=== PATIENT | female | born 1945 | race Caucasian/White ===

== ENCOUNTER → 2018-02-28 07:25 | Outpatient (CLI) | payer MEDICARE, SELFPAY ==
--- NOTE | 2018-02-28 07:27 | BI_ITS ---
MAMMOGRAPHY - BILATERAL DIAGNOSTIC REASON FOR EXAM: Female, 72 years old. Right lateral lump x2 months. PERTINENT HISTORY: Right breast lump. Patient scheduled for surgical excision today. TECHNIQUE: Digital examination. Mediolateral oblique (MLO) and craniocaudad (CC) views of both breasts were obtained. CAD: CAD was performed on this study. This examination is augmented with a right exaggerated lateral view. COMPARISON: October 19, 2015. FINDINGS: Breast Composition: There are scattered areas of fibroglandular density. There are no dominant masses or suspicious calcifications. No other significant abnormalities are identified. BI/DIAG MAMM W/CAD, BILAT IMPRESSION: Stable bilateral diagnostic mammogram. Sonography of the palpable finding will be performed today. ASSESSMENT CATEGORY: BIRADS Category 0: Incomplete. Need additional imaging evaluation. A letter regarding these results will be sent to the patient by the facility within 30 days. FOLLOW UP RECOMMENDATION: Sonography of the palpable right breast finding today. Approximately 10% of breast cancers are not detected by mammography. A normal mammogram should not delay biopsy of a clinically suspicious abnormality. Electronically Signed: Montez Ramirez MD at 8:52 EDT , Service support ,
--- NOTE | 2018-02-28 08:52 | US_ITS ---
STUDY: ULTRASOUND BREAST - RIGHT REASON FOR EXAM: Female, 72 years old. Right breast lump. TECHNIQUE: Axial and longitudinal images of the RIGHT breast were performed with a high resolution ultrasound transducer. COMPARISON: None. FINDINGS: RIGHT Breast: The area of palpable abnormality was sonographically evaluated utilizing various imaging planes. Within the right lower outer breast there is a 3.3 x 2.9 x 0.8 cm, ovoid, hypoechoic focus. There is no posterior enhancement. There is no posterior shadowing. This lesion is at the approximate 7:30 position identified 15 cm from the nipple. The margins are indistinct but smooth. There is no change to the abnormality with compression. There is peripheral vascularity without central vascularity. This finding is wider than it is tall. US/Breast Limited Unilateral IMPRESSION: 3.3 cm maximum dimension nodule with indistinct but smooth margins at the 7:30 position right breast 15 cm from the nipple. No posterior enhancement. No posterior shadowing. This finding may represent a phyllodes tumor. ASSESSMENT CATEGORY: Combined mammographic and sonographic assessment from today-BIRADS Category 4A: Low suspicion for malignancy. A letter regarding these results will be sent to the patient by the facility within 30 days. Recommendation: Ultrasound-guided core biopsy. Electronically Signed: Montez Ramirez MD at 10:47 EDT , Service support ,
== END ==
PROVIDERS: Family Provider Nurse Practitioner; PCP Nurse Practitioner; Visit Provider Nurse Practitioner
DX: N63.13 Unspecified lump in the right breast, lower outer quadrant (principal)
CPT/HCPCS: 76642; 77062; 77066; G0279

== ENCOUNTER → 2018-03-03 08:40 | Outpatient (CLI) | payer MEDICARE, SELFPAY ==
--- NOTE | 2018-03-03 08:40 | MASS_PTH ---
PATIENT: FLAQUITO MEIER LOC: [facility] #:[id number] AGE/SX: 80/F ROOM: RE03/03/[address]: Dr. Polo Cobb MD : 1945 BED: DIS: SPEC #: [id number] RECD: 03/03/18 09:17 STATUS: SHEILA NAN #: [id number] MONIKA: 03/03/18 08:[address]: Polo Cobb DEPT: SURGICAL PATHOLOGY RECD BY: Juan A Bonner ENTERED: 03/05/18 10:29 SP TYPE: Mass OTHR DR: Melissa Vicente, SUPERVISOR CORE DRILLING-C Tissues: Chest wall, NOS Procedures: Surgery Specimen Level III HEADER OPERATION: Excision, subcutaneous mass, right lateral chest wall PRE-OP DIAGNOSIS: Lesion, subcutaneous tissue, L98.9 TISSUE SUBMITTED: Subcutaneous mass, right lateral chest wall MICROSCOPIC DIAGNOSIS Subcutaneous mass, right lateral chest wall, excision: Mature adipose tissue, consistent with lipoma. SJ:jackelyn 03/06/18 MICROSCOPIC DESCRIPTION Slides are reviewed. GROSS DESCRIPTION Received in fixative is one container labeled with the patient's name and designated subcutaneous mass right lateral chest wall. The specimen consists of a piece of yellow adipose tissue measuring 3.5 x 2.5 x 2 cm. The external surface is inked. Sections reveal yellow adipose cut surfaces without areas of hemorrhage, necrosis or cystic degeneration. Flatwork Folder sections are submitted in two cassettes. / RENAE:jackelyn 03/05/18 TC:1 CPT: 14739
== END ==
PROVIDERS: Family Provider Nurse Practitioner; PCP Nurse Practitioner; Visit Provider Surgery
DX: L98.9 Disorder of the skin and subcutaneous tissue, unspecified (principal)
CPT/HCPCS: 88304; 88305

== ENCOUNTER → 2018-03-12 09:17 | Outpatient (CLI) | payer MEDICARE, SELFPAY ==
--- NOTE | 2018-03-12 09:23 | US_ITS ---
STUDY: ABDOMINAL ULTRASOUND - RIGHT UPPER QUADRANT REASON FOR VISIT: Female, 72 years old. Elevated LFTs. TECHNIQUE: Ultrasound evaluation of the right upper quadrant was performed with real-time and static cruz-scale imaging. TECHNICAL QUALITY: Adequate. COMPARISON: CT abdomen and pelvis with contrast 10/12/2015. FINDINGS: Liver: The liver measures 12.9 cm. There is normal echogenicity of the liver. The bile ducts are within normal limits. There is hepatic color flow. The direction of portal flow is hepatopetal. There is no demonstrated mass lesion. Gallbladder: Normal distended gallbladder. The gallbladder wall measures 2 mm. There is a negative sonographic Deng's sign. There is no pericholecystic fluid. There is a nonmobile hyperechoic focus in the gallbladder wall. This is gallbladder polyp and it measures 0.3 x 0.2 cm. Common Bile Duct (C.B.D.): The common bile duct measures 3 mm. Pancreas: Normal size of the head, body and tail of the pancreas. There is normal echogenicity of the pancreas. There is no demonstrated pancreatic mass or cyst. The pancreatic duct is not dilated. Right Kidney: Normal size of the right kidney. The right kidney measures 9.9 x 5.0 x 4.3 cm. Normal renal cortex. The right cortex measures 1.1 cm. There is no demonstrated renal mass or cyst. There is no right hydronephrosis. There is a prominent right extrarenal pelvis which correlates with the previous CT of the abdomen. US/Liver IMPRESSION: 1. Small gallbladder polyp. 2. No suspicious acute abnormality in the abdomen. Electronically Signed: Ad Mack MD at 11:49 EDT , Service support ,
== END ==
PROVIDERS: Family Provider Internal Medicine; PCP Internal Medicine; Visit Provider Internal Medicine
DX: R94.5 Abnormal results of liver function studies (principal)
CPT/HCPCS: 76705

== ENCOUNTER → 2018-05-29 12:42 | Outpatient (CLI) | payer MEDICARE, SELFPAY ==
--- NOTE | 2018-05-29 12:51 | CT_ITS ---
STUDY: CT BRAIN WITHOUT CONTRAST REASON FOR EXAM: Female, 73 years old. Intermittent right facial numbness and tingling x2.5 years. RADIATION DOSAGE (If Supplied By Facility): CTDIvol = ( 44.99 ) mGy, DLP = ( 762.36 ) mGycm TECHNIQUE: Transaxial CT imaging of the brain was performed without administration of intravenous contrast material. Individualized dose optimization techniques were used for this CT. COMPARISON: MRI brain October 16, 2015. FINDINGS: Normal soft tissue structures. Normal calvarium. Mild atherosclerotic calcifications of the cavernous segments of the internal carotid arteries. Normal size ventricles and extra-axial spaces for the patient's age. Normal white matter tracts of the cerebral hemispheres. There are small punctate calcifications of the basal ganglia which are seen in the aging brain as a normal variant. Normal brainstem. Normal cerebellum. There is no intracranial hemorrhage. There are no findings of an acute ischemic infarction. Normal visualized paranasal sinuses. CT/Brain/Head without Contrast IMPRESSION: No acute intracranial pathology. Electronically Signed: Ronny Cabezas MD at 19:44 EDT , Service support ,
== END ==
PROVIDERS: Family Provider Internal Medicine; PCP Internal Medicine; Visit Provider Nurse Practitioner
DX: R20.2 Paresthesia of skin (principal); R20.0 Anesthesia of skin
CPT/HCPCS: 70450

== ENCOUNTER → 2018-05-31 09:45 | Outpatient (CLI) | payer MEDICARE, SELFPAY ==
--- NOTE | 2018-05-31 09:50 | CDU_ITS ---
Reason For Study: RT sided facial numbness/tingling Rt. Velocities/BP Lt. Velocities/BP Prox CCA 107.0/17.0 cm/sec. Prox CCA 76.2/21.7 cm/sec. Mid CCA 91.5/27.0 cm/sec. Mid CCA 82.7/24.0 cm/sec. Dist CCA 73.9/19.9 cm/sec. Dist CCA 65.1/21.1 cm/sec. Prox ICA 74.5/27.6 cm/sec. Prox ICA 68.0/27.0 cm/sec. Mid ICA 92.0/40.5 cm/sec. Mid ICA 77.4/30.5 cm/sec. Dist ICA 78.6/30.0 cm/sec. Dist ICA 85.0/36.9 cm/sec. Rt. ICA/CCA = 1.0. Lt. ICA/CCA = 1.0. Prox ECA 105.0/16.4 cm/sec. Prox ECA 62.7/10.6 cm/sec. Rt. Vert. 48.1/17.6 cm/sec. Lt. Vert. 78.6/23.5 cm/sec. Right Extracranial There is no significant atherosclerotic plaque noted in the right common carotid artery. There is no significant atherosclerotic plaque noted in the right internal carotid artery. There is no significant atherosclerotic plaque noted in the right external carotid artery. Antegrade flow is noted in the right vertebral artery. Left Extracranial There is intimal thickening but no significant atherosclerotic plaque noted in the left common carotid artery. There is no significant atherosclerotic plaque noted in the left internal carotid artery. There is no significant atherosclerotic plaque noted in the left external carotid artery. Antegrade flow is noted in the left vertebral artery. Procedure Carotid Duplex [id number]. Exam performed in department. Interpretation Summary No significant atherosclerotic plaque or stenosis noted in the internal carotid arteries bilaterally. Flow within the vertebral arteries is antegrade bilaterally. Ordering Physician: Melissa Vicente Referring Physician: Melissa Vicente Performed By: Yolanda Marcial RVT
== END ==
PROVIDERS: Family Provider Internal Medicine; PCP Internal Medicine; Visit Provider Nurse Practitioner
DX: R20.0 Anesthesia of skin (principal); R20.2 Paresthesia of skin
CPT/HCPCS: 93880

== ENCOUNTER → 2018-06-04 14:03 | Outpatient (CLI) | payer MEDICARE, SELFPAY ==
[2018-06-04 15:49] LABS: Ferritin 429 ng/mL (8-252)
[2018-06-06 14:07] LABS: ANTINUCLEAR ANTIBODIES DIRECT Negative (Negative)
[2018-06-07 16:50] LABS: Anti-Smooth Muscle ABS 9 Units (0-19); HEPATITIS B SURFACE AG Negative (Negative); Hep C Antibodies 0.1 s/co ratio (0.0-0.9)
[2018-06-07 17:07] LABS: Alpha Antitrypsin Serum 93 mg/dL (90-200); Anti-Mitochondrial AB <20.0 Units (0.0-20.0)
== END ==
PROVIDERS: Family Provider Internal Medicine; PCP Internal Medicine; Visit Provider Internal Medicine Gastroenterology
DX: K75.9 Inflammatory liver disease, unspecified (principal)
CPT/HCPCS: 36415; 82103; 82728; 83516; 86038; 86803; 87340

== ENCOUNTER → 2018-07-05 08:32 | Outpatient (CLI) | payer MEDICARE, SELFPAY | PROVIDERS: Family Provider Internal Medicine; PCP Internal Medicine; Visit Provider Internal Medicine | DX: M81.0 Age-related osteoporosis without current pathological fracture (principal) | CPT/HCPCS: 77080 ==

== ENCOUNTER → 2018-08-16 15:06 | Outpatient (CLI) | payer MEDICARE, SELFPAY ==
[2018-08-16 17:32] LABS: Absolute Lymphocyte Count 0.63 X10^3/ul (0.83-4.51); Absolute Neutrophil Count 1.4 X10^3/uL (2.0-7.7); Basophil# 0.08 X10^3/uL; Basophil% 3.6 % (0-1); Eosinophil# 0.01 X10^3/uL; Eosinophils% 0.4 % (0-5); Hematocrit 40.9 % (37-47); Hemoglobin 13.1 g/dl (12.0-15.0); Lymphocyte # 0.63 X10^3/ul (4.0); Mean Corpuscular Hgb 27.8 pg (27.0-32.0); Mean Corpuscular Volume 86.7 fL (81-99); Monocyte# 0.15 X10^3/uL; Monocyte% 6.7 % (0-10); Neutrophil # 1.38 X10^3/uL (2.7-7.7); Neutrophil % 61.3 % (47-70); Platelet Count 139 K/mm3 (150-450); RBC Distribution Width CV 15.3 % (11.6-14.6); RBC Distribution Width SD 48.8 fl (35.1-43.9); Red Blood Count 4.72 M/mm3 (4.2-5.4); White Blood Count 2.3 K/mm3 (4.4-11.0)
[2018-08-16 17:51] LABS: POSITIVE COUNT NO; POSITIVE DIFFERENTIAL NO; POSITIVE MORPHOLOGY NO
[2018-08-16 17:53] LABS: Erythrocyte Sedimentation Rate < 1 mm/hr (0-30)
[2018-08-16 17:55] LABS: Hemoglobin A1c 5.1 % (4.2-6.3)
[2018-08-16 18:12] LABS: ALB/GLOB Ratio 1.3 RATIO (0.9-2.4); AST(SGOT) 66 U/L (15-37); Alanine Aminotransfer ALT/SGPT 111 U/L (13-56); Albumin, Serum 3.9 g/dL (3.2-5.0); Alkaline Phosphatase 157 U/L (45-117); Anion Gap 7 (5-15); BUN 21 mg/dL (7-18); BUN/Creat Ratio 33.2 RATIO (10-20); Calcium,Total 8.7 mg/dL (8.5-10.1); Chloride 108 mmol/L (98-107); Creatinine, Serum 0.63 mg/dL (0.55-1.02); EST Glomerular Filtration Rate 98 mL/min (>60); Est Glom Filt Rate - Afr Amer 118 mL/min (>60); Globulin 2.9 g/dL (2.2-4.2); Glucose 84 mg/dL (74-106); Potassium 3.9 mmol/L (3.5-5.1); Protein, Total 6.8 g/dL (6.4-8.2); Sodium Level 143 mmol/L (136-145); Thyroid Stim Hormone (TSH) 1.53 uIU/mL (0.358-3.74)
[2018-08-16 18:39] LABS: HIV - WCH Non-Reactive (Nonreactive); Vitamin B12 777 pg/mL (211-911)
[2018-08-21 09:03] LABS: ANTINUCLEAR ANTIBODIES DIRECT Negative (Negative)
[2018-08-22 22:09] LABS: PROEL- A/G Ratio 1.7 (0.7-1.7); PROEL- Albumin 3.9 g/dL (2.9-4.4); PROEL- Alpha-1 Globulin 0.1 g/dL (0.0-0.4); PROEL- Alpha-2 Globulin 0.5 g/dL (0.4-1.0); PROEL- Gamma Globulin 0.7 g/dL (0.4-1.8); PROEL- Globulin, Total 2.3 g/dL (2.2-3.9); PROEL- TOTAL PROTEIN 6.2 g/dL (6.0-8.5)
[2018-08-23 13:27] LABS: Arsenic 7245 8 ug/L (2-23); Hep C Antibodies <0.1 s/co ratio (0.0-0.9)
== END ==
PROVIDERS: Family Provider Internal Medicine; PCP Internal Medicine; Referring Provider Nurse Practitioner Gerontology; Visit Provider Nurse Practitioner Gerontology
DX: R20.0 Anesthesia of skin (principal); R20.2 Paresthesia of skin; E16.2 Hypoglycemia, unspecified
CPT/HCPCS: 36415; 80053; 82175; 82607; 83036; 83655; 83825; 84165; 84443; 85025; 85652; 86038; 86703; 86803

== ENCOUNTER → 2018-08-29 13:52 | Outpatient (CLI) | payer MEDICARE, SELFPAY | PROVIDERS: Family Provider Internal Medicine; PCP Internal Medicine; Referring Provider Internal Medicine; Visit Provider Internal Medicine | DX: I49.3 Ventricular premature depolarization (principal) | CPT/HCPCS: 93225; 93226 ==

== ENCOUNTER → 2020-02-10 11:34 | Outpatient (CLI) | payer MEDICARE, SELFPAY ==
--- NOTE | 2020-02-10 11:40 | RAD_ITS ---
STUDY: X-RAY CHEST REASON FOR EXAM: Female, 74 years old. CHEST PAIN TECHNIQUE: PA and lateral views of the chest. COMPARISON: Comparison is made with prior examination dated July 26, 2017. FINDINGS: Hyperinflation. The lungs are clear. There is no demonstrated pleural abnormality. Normal size heart. Normal mediastinum and sheldon. Normal visualized pulmonary arteries. Normal visualized aortic arch and descending thoracic aorta. There are mild degenerative changes of the visualized thoracic spine. Normal visualized ribs, clavicles, and shoulders. There is no demonstrated abnormality of the visualized soft tissue structures of the upper abdomen. RAD/Chest PA and Lateral IMPRESSION: Hyperinflation. The lungs are clear. Electronically Signed: Hu Mims, at 12:43 EDT , Service support ,
== END ==
PROVIDERS: PCP Internal Medicine; Referring Provider Nurse Practitioner; Visit Provider Nurse Practitioner
DX: R07.9 Chest pain, unspecified (principal)
CPT/HCPCS: 71046

== ENCOUNTER → 2020-02-10 12:47 | Outpatient (CLI) | payer MEDICARE, SELFPAY | PROVIDERS: PCP Internal Medicine; Referring Provider Nurse Practitioner; Visit Provider Nurse Practitioner | DX: R00.0 Tachycardia, unspecified (principal); R07.9 Chest pain, unspecified | CPT/HCPCS: 71046; 93225; 93226 ==

== ENCOUNTER → 2020-03-06 12:55 | Outpatient (CLI) | payer MEDICARE, SELFPAY ==
--- NOTE | 2020-03-06 12:57 | ECHOD_ITS ---
Version 2 Reason For Study: TACHYCARDIA Procedure This was a 2D Doppler, Color Flow transthoracic echocardiogram. Exam performed in department. Left Ventricle Normal LV size. Left ventricular systolic function is normal. The estimated ejection fraction is 55 %. The global longitudinal strain = -23 % (normal). Diastolic function is indeterminate. No regional wall motion abnormalities noted. Right Ventricle Normal RV size. Normal systolic function. Atria Normal left atrium. Normal right atrium. No doppler evidence for ASD. Mitral Valve There is no mitral annular calcification. Mild diffuse mitral valve thickening. Mild to moderate mitral valve prolapse. Mild-Moderate (1-2+) mitral valve insufficiency. Tricuspid Valve Normal tricuspid valve. Mild to moderate (1-2+) eccentric tricuspid valve insufficiency. Right ventricular systolic pressure estimated to be 29 mmHg. Aortic Valve Trisinus/trileaflet aortic valve. Mild diffuse aortic valve thickening. Mild (1+) aortic valve insufficiency. Pulmonic Valve The pulmonic valve is not well visualized. Trivial pulmonic valve insufficiency. Great Vessels Normal sized aortic root. Pericardium/Pleural No pericardial effusion. MMode/2D Measurements & Calculations LVIDd: 4.0 cm IVSd: 0.86 cm Ao root diam: 3.4 cm LVIDs: 2.9 cm LVPWd: 0.95 cm RVDd: 3.3 cm FS: 28.4 % LAV(MOD-bp): 38.8 ml LA A4 area: 13.8 cm2 LA dimension(2D): 3.3 cm LAV(MOD-bp) Indexed: 23.7 ml/m2 LAV(MOD-sp2): 50.4 ml LAV(MOD-sp4): 29.3 ml RA A4 area: 12.8 cm2 Time Measurements MV dec time: 0.17 sec Doppler Measurements & Calculations MV E max ravi: 62.7 cm/sec Lat Peak E' Ravi: 10.2 cm/sec Med Peak E' Ravi: 5.7 cm/sec MV A max ravi: 89.5 cm/sec E/E' lat: 6.1 E/E' med: 11.0 MV E/A: 0.70 Ao V2 max: 132.8 cm/sec AI max ravi: 417.7 cm/sec LV V1 max: 94.6 cm/sec Ao max P.1 mmHg AI max P.9 mmHg LV V1 max P.6 mmHg AI dec slope: 297.8 cm/sec2 AI P1/2t: 410.8 msec PA V2 max: 79.0 cm/sec TR max ravi: 254.9 cm/sec TR max P.1 mmHg Interpretation Summary Left ventricular systolic function is normal. The estimated ejection fraction is 55 %. The global longitudinal strain = -23 % (normal). Mild to moderate mitral valve prolapse. Mild diffuse mitral valve thickening. Mild-Moderate (1-2+) mitral valve insufficiency. Mild to moderate (1-2+) eccentric tricuspid valve insufficiency. Mild diffuse aortic valve thickening. Mild (1+) aortic valve insufficiency. Trivial pulmonic valve insufficiency. Right ventricular systolic pressure estimated to be 29 mmHg. Diastolic function is indeterminate. Ordering Physician: Melissa Vicente Referring Physician: Melissa Vicente Performed By: Agatha Nunn, LISETH, RVT
== END ==
PROVIDERS: PCP Nurse Practitioner; Referring Provider Nurse Practitioner; Visit Provider Nurse Practitioner
DX: R07.9 Chest pain, unspecified (principal); R00.0 Tachycardia, unspecified
CPT/HCPCS: 93306

== ENCOUNTER → 2020-08-13 12:38 | Outpatient (CLI) | payer MEDICARE, SELFPAY ==
--- NOTE | 2020-08-13 12:43 | BI_ITS ---
MAMMOGRAPHY - BILATERAL SCREENING REASON FOR EXAM: Female, 75 years old. Routine annual screening examination. PERTINENT HISTORY: FAM HX OF MOTHER @ AGE 36 - NO PREV SURG''S - TECHNIQUE: Digital bilateral breast stepan (3D mammographic acquisition) in the CC and MLO projections. 2-D mediolateral oblique (MLO) and craniocaudad (CC) views of both breasts were obtained. CAD: Full Field Digital Mammography with Computer Added Detection was performed. COMPARISON: 06/30/2018 and 10/21/2015 FINDINGS: Breast Composition: There are scattered areas of fibroglandular density. There are no dominant masses or suspicious calcifications. No other significant abnormalities are identified. BI/SCREEN MAMM (CAD) W/STEPAN BILAT IMPRESSION: Stable bilateral screening mammogram. Yearly follow-up mammogram recommended. (A) ASSESSMENT CATEGORY: BIRADS Category 2: Benign. A letter regarding these results will be sent to the patient by the facility within 30 days. Approximately 10% of breast cancers are not detected by mammography. A normal mammogram should not delay biopsy of a clinically suspicious abnormality. [id number] Electronically Signed: Tegan Miramontes, at 16:39 EDT Tel , Service support ,
--- NOTE | 2020-08-13 13:10 | BD_ITS ---
STUDY: DUAL ENERGY X-RAY ABSORPTIOMETRY / DXA REASON FOR EXAM: Female, 75 years old. 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 COMPARISON: Comparison is made with prior study dated 07/05/2018. FINDINGS: Lumbar Spine (L1-L4): g/cm2 (0.876) / T-score (-2.5) / Z-score (-0.8) Findings are suggestive of osteoporosis with a high fracture risk. Left Femur Total: g/cm2 (0.668) / T-score (-2.7) / Z-score (-0.9) Left Femoral Neck: g/cm2 (0.634) / T-score (-2.9) / Z-score (-0.9) Right Femur Total: g/cm2 (0.641) / T-score (-2.9) / Z-score (-1.1) Right Femoral Neck: g/cm2 (0.600) / T-score (-3.2) / Z-score (-1.2) The T-Scores on the most recent prior examination were: Lumbar Spine (L1-L4): There has been worsening of bone density since the previous examination. Left Femur Total: which represents an improvement of 1.2%. Right Femur Total: which represents a worsening of 0.6%. BD/Dexa Bone Density Study IMPRESSION: The patient is considered osteoporotic as outlined below according to World Clay Organization (WHO) criteria with a high fracture risk. There has been improvement of bone density since the previous examination. Reference Information: The T-score is the number of standard deviations above or below the standard which is normal for young adults at their peak bone mineral density. The World Health Organization (WHO) interprets the T-scores as follows: Above -1 Normal bone density Between -1 and -2.5 Osteopenia Equal to / or below -2.5 Osteoporosis As a practical clinical guideline, osteopenia may be graded as follows: Mild -1 through -1.5 Moderate -1.6 through -2.0 Severe -2.1 through -2.4 The Z-score is the number of standard deviations above or below age-matched controls. A Z-score of less than -1.5 would be considered abnormal. References: 1. NIH Osteoporosis and Related Bone Diseases www osteo.org 2. International Society for Clinical Densitometry www iscd.org 3. National Osteoporosis Foundation www nof.org Electronically Signed: Hu Mims, at 13:35 EDT , Service support ,
== END ==
PROVIDERS: PCP Nurse Practitioner; Referring Provider Nurse Practitioner; Visit Provider Nurse Practitioner
DX: Z12.31 Encounter for screening mammogram for malignant neoplasm of breast (principal); Z78.0 Asymptomatic menopausal state
CPT/HCPCS: 77063; 77067; 77080

== ENCOUNTER → 2021-01-29 08:12 | Outpatient (CLI) | payer MEDICARE, SELFPAY ==
--- NOTE | 2021-01-29 08:19 | CT_ITS ---
STUDY: CT ORBITS WITHOUT CONTRAST REASON FOR EXAM: Female, 75 years old. DIPLOPIA RADIATION DOSAGE (If Supplied By Facility): CTDIvol = ( 29.38 ) mGy, DLP = ( 290.35 ) mGycm TECHNIQUE: The patient was scanned in a multi detector CT scanner. Transaxial imaging was performed without the administration of intravenous contrast material. Sagittal and coronal images were reconstructed. Individualized dose optimization techniques were used for this CT. COMPARISON: None. FINDINGS: Normal globes. Normal intraconal spaces. Normal optic nerve sheath complex. 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 Normal lacrimal glands. Normal bilateral medial and inferior orbital dunne. Normal bilateral maxillary bones. Normal bilateral frontozygomatic arches. Normal bilateral zygomatic temporal arches. Normal frontal sinus. Normal ethmoidal sinuses. Normal maxillary sinuses. Normal sphenoid sinuses. Normal soft tissue structures. 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 Electronically Signed: Hu Mims MD at 13:05 EDT , Service support ,
== END ==
PROVIDERS: PCP Nurse Practitioner; Referring Provider Ophthalmology; Visit Provider Ophthalmology
DX: H53.2 Diplopia (principal)
CPT/HCPCS: 70480

== ENCOUNTER → 2021-02-19 12:14 | Outpatient (CLI) | payer MEDICARE, SELFPAY ==
--- NOTE | 2021-02-19 12:27 | US_ITS ---
STUDY: THYROID ULTRASOUND REASON FOR EXAM: Female, [address] TECHNIQUE: Ultrasound evaluation of the thyroid was performed with real-time and static cruz-scale imaging. COMPARISON: None. FINDINGS: RIGHT LOBE: The right lobe of the thyroid gland measures 3.7 cm x 1.1 cm x 1.6 cm. There is a homogeneous echotexture. There are no demonstrated solid, cystic or complex lesions. LEFT LOBE: The left lobe of the thyroid gland measures 4.3 cm x 1.7 cm x 1.3 cm. There is a homogeneous echotexture. There is a 3 mm x 2 mm x 2 mm hypoechoic solid nodule in the midpole of the left lobe. There is perinodular vascularity. ISTHMUS: The isthmus measures 2 mm. The regional lymph nodes are normal. US/Thyroid IMPRESSION: 3 mm x 2 mm x 2 mm hypoechoic solid nodule in the midportion of the left lobe of the thyroid. Electronically Signed: Hu Mims MD at 15:27 EDT , Service support ,
== END ==
PROVIDERS: PCP Nurse Practitioner; Referring Provider Nurse Practitioner; Visit Provider Nurse Practitioner
DX: R90.89 Other abnormal findings on diagnostic imaging of central nervous system (principal)
CPT/HCPCS: 76536

== ENCOUNTER 2021-03-05 05:49 | Emergency (ER) | payer MEDICARE, SELFPAY ==
[2021-03-05 05:50] VITALS: BP 149/83; PULSE 83; RESP 16; TEMP 36.1; O2SAT 97; BMI 23.4
--- NOTE | 2021-03-05 06:01 | ED.VIS.GI ---
HPI HPI - GI History of Present Illness Chief Complaint: Flank Pain Informant: patient and spouse/S.O. Abdominal Pain/Flank Pain Onset: Yesterday Context: Sudden Onset Timing: Continuous and Intermittent Quality: Sharp Location: Left Flank Current Severity: Moderate Maximum Severity: Moderate Worsened by: Nothing Nausea/Vomiting/Emesis GI Symptom: Positive for Nausea Onset: Today Severity: Mild Diarrhea/Melena/Hematochezia GI Symptom: Negative for Diarrhea, Melena and Hematochezia Stool Quality: Negative for Loose and Watery Associated Symptoms Associated Symptoms: Negative for Dysuria, Frequency and Hematuria Narrative Narrative: 75-year-old female history of COPD and a prior left kidney stone. Prior hysterectomy. States that yesterday she had onset of left flank pain actually improved and became worse around 130 this morning. Associated nausea. No diarrhea or fever. No dysuria. No hematuria. She does not think this feels like her prior kidney stone. She denies any abdominal trauma. [facility] Medical History (Updated 03/05/21 @ 07:[address] Bryan Lloyd MD) Kidney stone on left side Home Medications hydrocodone-acetaminophen 1 tab PO Q4H PRN 4 Days #14 tab 03/05/21 [Rx Last Taken Unknown] metoprolol succinate [Toprol XL] 12.5 mg PO DAILY 03/05/21 [History Last Taken Unknown] ondansetron HCl [Zofran] 4 mg PO Q6H PRN #10 tab 03/05/21 [Rx Last Taken Unknown] Allergy/AdvReac Type Severity Reaction Status Date / Time metoclopramide [From Reglan] Allergy Mild Unknown Verified 03/05/21 05:55 Family History Mother Breast cancer Father Cancer Brother Cancer Sister Cancer Surgical History H/O: hysterectomy Hx of colonoscopy Status post right foot surgery Social History Smoking Status: Never smoker alcohol intake: never ROS ROS ED ROS Narrative Other than nausea associated with her left flank pain she has not had any recent illness. She denies dysuria or hematuria. She denies fever. Constitutional Constitutional ED: Denies fever(s) ENT ENT ED: Denies ear pain, rhinorrhea or sore throat Cardiovascular Cardiovascular: Denies chest pain or palpitations Respiratory/Chest Respiratory/Chest: Denies cough or dyspnea Gastrointestinal Gastrointestinal: Reports abdominal pain and nausea; Denies constipation, diarrhea or melena Genitourinary Genitourinary ED: Denies dysuria, hematuria or urinary frequency Musculoskeletal Musculoskeletal: Denies arthralgias or myalgias Integumentary Denies abscess or rash Neurologic Neurologic: Denies weakness Psychiatric Psychiatric: Denies depression Endocrine Endocrinology: Denies polyuria Hematologic/Lymphatic Hematologic/Lymphatic: Denies easy bruising Allergic/Immunologic Allergic/Immunologic ED: Denies urticaria EXAM Physical Exam Narrative Exam Narrative: 75-year-old female complaining of left flank pain. Vital signs are stable and she is afebrile. She is actively nauseated in the room. is at bedside. HEENT exam unremarkable. Lungs are clear to auscultation bilaterally. Heart regular rhythm no murmur. Abdomen soft. She does have left-sided abdominal tenderness primarily in the left lower quadrant. No organomegaly or masses appreciated. No pulsatile mass. No signs of trauma. No distention. Right upper quadrant and right lower quadrant unremarkable. She does have bowel sounds. Moving all 4 extremities. Neurovascularly intact. Calves are nontender without edema. Neurologically she is awake and alert with no focal motor deficits. Const Vital Signs: 03/05/21 05:50 Temperature 97 F L Temperature Source Temporal Pulse Rate 83 Respiratory Rate 16 Blood Pressure 149/83 H Blood Pressure Mean 105 Pulse Ox 97 Oxygen Delivery Method Room Air HEENT normocephalic and atraumatic Eyes PERRL and EOMs intact bilaterally Neck no lymphadenopathy and supple Resp normal respiratory effort and clear to auscultation bilaterally Cardio regular rate, regular rhythm and no murmurs GI non-distended and no masses Auscultation: normoactive bowel sounds Palpation: soft and tender Back/Spine no CVA tenderness Extremity full ROM General Extremety ED: Negative for edema or tenderness General Extremity: Negative for edema Neuro moves all extremities Sensorium / Orientation: alert, oriented to person, oriented to place and oriented to time; Negative for orientation impaired Psych mental status grossly normal Skin no wounds General Skin Exam: Negative for jaundice Lesions: no lesions Rashes: no rashes MDM MDM MDM Narrative Medical decision making narrative: 75-year-old female with left flank pain with a prior stone but she believes this does not feel like her prior kidney stone did. On exam she does have some mild reproducible tenderness on the left upper and lower quadrants. There is no peritoneal signs. Differential diagnosis would include diverticulitis, kidney stone, UTI versus other acute intra-abdominal abnormalities. She will be treated with IV fluids, Zofran for nausea and morphine for pain. CAT scan, labs and UA are being obtained. CBC unremarkable except for low white count which patient had in the past. Chemistries unremarkable normal creatinine. Normal gap. UA shows red blood cells but no signs of infection. CAT scan of the abdomen pelvis with IV contrast read by the radiologist and reviewed by me shows 4 mm distal left ureteral stone with hydroureter and hydronephrosis. I reviewed the film and agree. Multiple repeat exams the patient is doing well at 6:50 AM. She is still having mild left flank pain and will be given a second dose of morphine 4 mg IV. Her nausea currently is resolved. She and her of I have discussed all test results. Patient is doing well on repeat exam at 7:50 AM and will be discharged to home with [place] for pain and Zofran for nausea. Lab Data Labs: Laboratory Results - last 24 hr 03/05/21 03/05/21 03/05/21 06:00 06:00 06:18 WBC 2.8 L RBC 4.45 Hgb 12.9 Hct 39.2 MCV 88.1 MCH 29.0 MCHC 32.9 RDW Std Deviation 48.5 H RDW Coeff of Karin 15.0 H Plt Count 153 MPV 9.6 Immature Gran % (Auto) 0.400 Neut % (Auto) 79.0 H Lymph % (Auto) 12.4 L [place] % (Auto) 5.7 Eos % (Auto) 1.1 Baso % (Auto) 1.4 H Absolute Neuts (auto) 2.2 Absolute Lymphs (auto) 0.35 L Nucleated RBC % 0 Differential Comment SCANNED Diff Path Review May foll Platelet Estimate ADEQUATE Sodium 143 Potassium 3.6 Chloride 112 H Carbon Dioxide 28.0 Anion Gap 3 L BUN 25 H Creatinine 1.01 Estim Creat Clear Calc 40.92 Est GFR (MDRD) Af Amer 68 Est GFR (MDRD) Non-Af 57 L BUN/Creatinine Ratio 24.8 H Glucose 114 H Calcium 9.0 Urine Color Yellow Urine Clarity Clear Urine pH 6.0 Ur Specific [place] 1.020 Urine Protein 30 H Urine Glucose (UA) Normal Urine Ketones Negative Urine Occult Blood 150 H Urine Nitrite Negative Urine Bilirubin Negative Urine Urobilinogen Normal Ur Leukocyte Esterase 25 H Urine RBC 10-25 SEEN Urine WBC 0 SEEN Ur Squamous Epith Cells 0 SEEN Urine Bacteria RARE Urine Mucus 1+ Radiography Diagnostic Testing: Radiology Impression Abdomen/Pelvis CT 03/05/21 06:04 IMPRESSION: Mild to moderate left hydronephrosis with peripelvic cysts. These findings are secondary to a left-sided ureteral stone measuring 4.2 x 3.0 mm Constipation. Mild splenomegaly. No appendicitis. Electronically Signed: Heidi Elam MD at 7:22 EDT Tel , Service support , Discharge Plan Triage Chief Complaint: Flank Pain ED Provider: Bryan Lloyd Dx/Rx/DC Orders Instructions: ED Kidney Stone w/ Colic Prescriptions: New hydrocodone-acetaminophen 5-325 mg tablet 1 tab PO Q4H PRN (Reason: pain) 4 Days Qty: 14 RF: 0 ondansetron HCl [Zofran] 4 mg tablet 4 mg PO Q6H PRN (Reason: nausea and vomiting) Qty: 10 RF: 0 No Action metoprolol succinate [Toprol XL] 25 mg tablet extended release 24 hr 12.5 mg PO DAILY RF: 0 Primary Care Provider: Melissa Vicente NP Referrals: Melissa Vicente CENTRIFUGAL EXTRACTOR OPERATOR, CENTRIFUGAL EXTRACTOR OPERATOR-C [Primary Care Provider] - 1-2 Days if not improving Activity Restrictions/Additional Instructions: Plenty of fluids and rest. [place] as needed for pain. Fluids, fruits, vegetables and fiber to prevent constipation. You may also use Motrin for pain. Follow-up with your primary care provider if not improving or return emergency department if feeling worse. Disposition Disposition: Home, self care
--- NOTE | 2021-03-05 06:04 | CT_ITS ---
STUDY: CT ABDOMEN AND PELVIS WITH CONTRAST REASON FOR EXAM: Female, 75 years old. Left flank pain RADIATION DOSAGE (If Supplied By Facility): CTDIvol = ( 11.1 ) mGy, DLP = ( 449 ) mGycm TECHNIQUE: Transaxial images were obtained from the dome of the diaphragm to the symphysis pubis without oral contrast. IV 100mL Isovue-300 was administered. Sagittal and coronal images were reconstructed. Individualized dose optimization techniques were used for this CT. COMPARISON: None. FINDINGS: There is lower lobe atelectasis. There is mild cardiac enlargement. There is mild periportal edema. Normal gallbladder and extrahepatic biliary System. There evidence mild splenomegaly. Normal pancreas. Normal bilateral adrenal glands. The multiple right-sided peripelvic cysts. There are multiple peripelvic cysts however there is a distended appearance of the left proximal ureter. There is a stone in the distal left ureter with surrounding edema within the ureter. It measures 4.2 x 2.0 mm. Normal visualized stomach. Normal small intestine. There is abundant stool in the colon. The appendix is visualized and appears normal. Aorta is partially calcified. Normal inferior vena cava. Normal retroperitoneum. Normal urinary bladder. There is absence of the uterus consistent with a prior hysterectomy. Normal abdominal wall. There is degenerative change in the lower lumbar spine. There is visualized degenerative change within the thoracolumbar spine. CT/Abdomen/Pelvis W IV Cont ONLY IMPRESSION: Mild to moderate left hydronephrosis with peripelvic cysts. These findings are secondary to a left-sided ureteral stone measuring 4.2 x 3.0 mm Constipation. Mild splenomegaly. No appendicitis. Electronically Signed: Heidi Elam MD at 7:22 EDT Tel , Service support ,
[2021-03-05] MEDS: Ondansetron 4 MG/2 ML Vial IV (06:08)
[2021-03-05] MEDS: morphine 8 MG/ML Syringe 6 MG IV (06:14)
[2021-03-05] MEDS: 0.9% Normal Saline 1,000 ML 1000 ML IV (06:14)
[2021-03-05 06:18] LABS: Absolute Lymphocyte Count 0.35 X10^3/uL (0.83-4.51); Absolute Neutrophil Count 2.2 X10^3/uL (2.0-7.7); Basophil# 0.04 X10^3/uL; Basophil% 1.4 % (0-1); Eosinophil# 0.03 X10^3/uL; Eosinophils% 1.1 % (0-5); Hematocrit 39.2 % (37-47); Hemoglobin 12.9 g/dL (12.0-15.0); Lymphocyte # 0.35 X10^3/ul (0.83-4.51); Lymphocyte % 12.4 % (19-41); Mean Corp Hgb Conc 32.9 g/dL (32-36); Mean Corpuscular Volume 88.1 fL (81-99); Mean Platelet Vol. 9.6 fl (6.2-12.0); Monocyte# 0.16 X10^3/uL; Monocyte% 5.7 % (0-10); NRBC Flagged by Analyzer 0 % (0-5); Neutrophil # 2.24 X10^3/uL (2.7-7.7); POSITIVE DIFFERENTIAL YES; Platelet Count 153 K/mm3 (150-450); RBC Distribution Width SD 48.5 fl (35.1-43.9); Red Blood Count 4.45 M/mm3 (4.2-5.4); White Blood Count 2.8 K/mm3 (4.4-11.0)
[2021-03-05 06:22] LABS: Differential Indicated SCAN CRITERIA MET
[2021-03-05 06:25] LABS: Squamous Epithelial Cells - UA 0 SEEN /hpf (5-10); White Blood Cells 0 SEEN /hpf (0-5)
[2021-03-05 06:26] LABS: Anion Gap 3 (5-15); BUN 25 mg/dL (7-18); BUN/Creat Ratio 24.8 RATIO (10-20); Chloride 112 mmol/L (98-107); Creatinine, Serum 1.01 mg/dL (0.55-1.02); EST Glomerular Filtration Rate 57 mL/min (>60); Est Glom Filt Rate - Afr Amer 68 mL/min (>60); Estimated Creatinine Clearance 40.92 ml/min; Glucose 114 mg/dL (74-106); Potassium 3.6 mmol/L (3.5-5.1); Sodium Level 143 mmol/L (136-145)
[2021-03-05 06:27] LABS: Color, Urine Yellow (Yellow); Glucose, Dipstick Normal (Normal); Ketone-Dipstick Negative (Negative); Leukocyte Esterase-Dipstick 25 /ul (Negative); Nitrite-Dipstick Negative (Negative); Occult Blood-Urine 150 /ul (Negative); Protein-Dipstick 30 mg/dl (Negative); Urine Bilirubin Dipstick Negative (Negative); Urine Clarity Clear (Clear); Urine Urobilinogen Normal (Normal)
[2021-03-05 06:33] LABS: Bacteria RARE /hpf (None Seen); Mucous, Urine 1+ /hpf (<or=2+); Red Blood Cells-Urine 10-25 SEEN /hpf (0-5)
[2021-03-05 06:38] LABS: Differential Comment SCANNED; Platelet Estimate ADEQUATE (ADEQ)
[2021-03-05] MEDS: Morphine 4 MG/ML Syringe IV (06:58)
[2021-03-05 08:06] VITALS: BP 102/50; PULSE 74; RESP 18
[2021-03-05 12:05] LABS: Pathologist Review Reviewed
== END 2021-03-05 08:09 | disposition home or self-care (01) ==
PROVIDERS: Emergency Provider Emergency Medicine; PCP Nurse Practitioner
DX: N13.2 Hydronephrosis with renal and ureteral calculous obstruction (principal); J44.9 Chronic obstructive pulmonary disease, unspecified; Z79.899 Other long term (current) drug therapy; Z87.442 Personal history of urinary calculi
CPT/HCPCS: 74177; 80048; 81001; 85025; 96361; 96374; 96375; 96376; 99283; J7030; Q9967; A4216; J2405

== ENCOUNTER → 2021-03-11 10:55 | Outpatient (CLI) | payer MEDICARE, SELFPAY ==
[2021-03-05 05:50] VITALS: BMI 23.4
--- NOTE | 2021-03-11 11:12 | MRI_ITS ---
STUDY: MRI BRAIN WITH AND WITHOUT CONTRAST REASON FOR EXAM: Female, 75 years old. DOUBLE VISION TECHNIQUE: Standardized multiplanar fat and water weighted pulse sequences were obtained. IV Dotarem 12ml was administered for the contrast portion of the examination. COMPARISON: CT head without contrast 05/29/2018. CT orbits without contrast 01/29/2021. FINDINGS: Normal size of the ventricles and extra-axial spaces for the patient''s age. Normal white matter tracts of the supratentorial brain. Normal bilateral basal ganglia. Normal thalami. There is no extra-axial fluid accumulation. Normal flow voids within the major intracranial circulation suggesting patency by spin echo criteria. Normal venous enhancement. There is no enhancing intra-axial or extra-axial abnormality. Normal sella turcica, pituitary gland, infundibular stalk, optic chiasm and hypothalamus. Normal tectal plate and pineal gland. Normal midbrain, weston and medulla. Normal cerebellum. Normal basal cisterns. Normal bilateral temporal bones. Normal bilateral internal auditory canals. Abnormal hypertrophy of all extraocular muscles. Normal orbital globes and optic nerves. No abnormal contrast enhancement of the optic nerves and optic nerve sheaths. Normal visualized paranasal sinuses. Normal calvarium and skull base. Normal visualized soft tissue structures. Normal visualized upper cervical spine. MRI/Brain W/WO Contrast IMPRESSION: 1. Normal unenhanced and enhanced MRI of the brain. 2. Abnormal enlargement of the extraocular muscles of both orbits. 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 They are unchanged when compared to CT orbits at 01/29/2021. Electronically Signed: Ad Mack MD at 16:12 EDT , Service support ,
== END ==
PROVIDERS: PCP Nurse Practitioner; Referring Provider Nurse Practitioner; Visit Provider Nurse Practitioner
DX: H53.2 Diplopia (principal)
CPT/HCPCS: 70553; A9575

== ENCOUNTER 2021-08-01 10:27 | Emergency (ER) | payer MEDICARE, SELFPAY ==
[2021-08-01 10:28] VITALS: BP 116/77; PULSE 107; RESP 16; TEMP 36.3; O2SAT 97; BMI 22.1
--- NOTE | 2021-08-01 10:53 | RAD_ITS ---
STUDY: X-RAY CHEST REASON FOR EXAM: Female, 76 years old. Cough. TECHNIQUE: Single AP portable view of the chest. COMPARISON: 02/10/2020. FINDINGS: The lungs are well expanded. There is vague groundglass infiltrates in the lung bases, right greater than left. There is no demonstrated pleural abnormality. Normal size heart. Normal mediastinum and sheldon. Normal visualized pulmonary arteries. Normal visualized aortic arch and descending thoracic aorta. Normal visualized thoracic spine. Normal visualized ribs, clavicles, and shoulders. There is no demonstrated abnormality of the visualized soft tissue structures of the upper abdomen. RAD/Chest 1 View (Portable) IMPRESSION: Bilateral pulmonary infiltrates. Electronically Signed: Rashawn Sharpe DO at 11:33 EDT Tel [phone], Service support ,
[2021-08-01 11:15] LABS: Absolute Neutrophil Count 2.6 X10^3/uL (2.0-7.7); Basophil# 0.04 X10^3/uL; Basophil% 1.2 % (0-1); Eosinophil# 0.02 X10^3/uL; Eosinophils% 0.6 % (0-5); Hematocrit 36.5 % (37-47); Hemoglobin 12.2 g/dL (12.0-15.0); Mean Corp Hgb Conc 33.4 g/dL (32-36); Mean Corpuscular Hgb 29.4 pg (27.0-32.0); Monocyte# 0.31 X10^3/uL; Monocyte% 9.3 % (0-10); NRBC Flagged by Analyzer 0 % (0-5); Neutrophil # 2.64 X10^3/uL (2.7-7.7); Neutrophil % 79.6 % (47-70); POSITIVE DIFFERENTIAL YES; Platelet Count 155 K/mm3 (150-450); RBC Distribution Width CV 14.7 % (11.6-14.6); RBC Distribution Width SD 47.7 fl (35.1-43.9); Red Blood Count 4.15 M/mm3 (4.2-5.4); White Blood Count 3.3 K/mm3 (4.4-11.0)
[2021-08-01 11:19] LABS: Differential Indicated SCAN CRITERIA MET
[2021-08-01 11:24] LABS: International Normalized Ratio 1.1; Prothrombin Time (Protime)PT. 13.9 SECONDS (11.7-14.9)
[2021-08-01 11:25] LABS: Partial Thromboplast Time 32.2 Seconds (24.1-36.2)
--- NOTE | 2021-08-01 12:43 | EDS_ITS ---
HPI History of Present Illness Chief Complaint: General Illness Narrative Narrative: Patient is a 76-year-old female who states for the past 7 days she has had mild congestion and cough and slight headache. She states today she blew her nose and there was a large amount of blood. She also states she was unable to cough and produce blood with that as well. She denies any further bleeding or hemoptysis and states she does not take any type of blood thinners but with the persistent nature of her symptoms and now the bleeding presents for evaluation [facility] Medical History Kidney stone on left side Home Medications hydrocodone-acetaminophen 1 tab PO Q4H PRN 4 Days #14 tab 03/05/21 [Rx Last Take n Unknown] metoprolol succinate [Toprol XL] 12.5 mg PO DAILY 03/05/21 [History Last Taken Unknown] ondansetron HCl [Zofran] 4 mg PO Q6H PRN #10 tab 03/05/21 [Rx Last Taken Unknown] dexamethasone [Decadron] 6 mg PO DAILY #10 tab 08/01/21 [Rx Last Taken Unknown] Allergy/AdvReac Type Severity Reaction Status Date / Time metoclopramide [From Reglan] Allergy Mild Unknown Verified 08/01/21 10:31 Family History Mother Breast cancer Father Cancer Brother Cancer Sister Cancer Surgical History H/O: hysterectomy Hx of colonoscopy Status post right foot surgery Social History Smoking Status: Never smoker alcohol intake: never ROS ROS ED Constitutional Constitutional ED: Denies chills or fever(s) ENT ENT ED: Reports rhinorrhea and sore throat Cardiovascular Cardiovascular: Denies chest pain Respiratory/Chest Respiratory/Chest: Reports cough; Denies dyspnea Gastrointestinal Gastrointestinal: Denies abdominal pain, diarrhea, nausea or vomiting Genitourinary Genitourinary ED: Denies dysuria Musculoskeletal Musculoskeletal: Denies myalgias Integumentary Denies rash Neurologic Neurologic: Reports headache(s) Hematologic/Lymphatic Hematologic/Lymphatic: Denies easy bleeding or easy bruising EXAM Physical Exam Const Vital Signs: 08/01/21 10:28 08/01/21 10:49 Temperature 97.3 F L Temperature Source Temporal Pulse Rate 107 H Respiratory Rate 16 Respiratory Effort Normal Non-Labored Respiratory Pattern Normal Blood Pressure 116/77 Blood Pressure Mean 90 Pulse Ox 97 Oxygen Delivery Method Room Air Positive well nourished and well developed General Appearance ED: well developed HEENT Reports moist mucous membranes HEENT Narrative: Nasal mucosa is hyperemic and boggy with enlarged inferior nasal turbinates but no active bleeding or dried blood noted. Posterior pharynx shows cobblestoning consistent with sinus drainage but no dried blood or active bleeding noted there either Eyes PERRL and EOMs intact bilaterally Neck supple Neck Narrative: Positive anterior cervical lymphadenopathy Chest Wall palpation of chest normal Resp normal respiratory effort and clear to auscultation bilaterally Cardio regular rate and regular rhythm GI normal to inspection, nondistended, normoactive bowel sounds, non-tender and non-distended Auscultation: normoactive bowel sounds Palpation: soft Extremity normal to inspection Neuro oriented x3 and CN's II-XII intact bilaterally Sensorium / Orientation: alert Psych mental status grossly normal Skin no rashes or lesions noted MDM MDM MDM Narrative Medical decision making narrative: Patient presented to the ER afebrile and in no acute respiratory distress. With her constellation of symptoms or was concerned this could be Covid related so a rapid swab was obtained as well as a chest x-ray. Chest x-ray showed changes consistent with infiltrate but she is Covid positive indicating this is a Covid pneumonia. As patient did report breakthrough bleeding elected to check bleeding times as well as platelets and blood volume and these were all normal. On reevaluation she remains in no acute respiratory distress and has no active bleeding. Therefore I do not feel there is need for admission to the hospital and she can be discharged with Decadron and can follow-up with her family doctor for further evaluation Lab Data Attestation: I reviewed the patient's lab results. Labs: Laboratory Results - last 24 hr 08/01/21 08/01/21 11:10 11:10 WBC 3.3 L RBC 4.15 L Hgb 12.2 Hct 36.5 L MCV 88.0 MCH 29.4 MCHC 33.4 RDW Std Deviation 47.7 H RDW Coeff of Karin 14.7 H Plt Count 155 MPV 10.0 Immature Gran % (Auto) 0.300 Neut % (Auto) 79.6 H Lymph % (Auto) 9.0 L [place] % (Auto) 9.3 Eos % (Auto) 0.6 Baso % (Auto) 1.2 H Absolute Neuts (auto) 2.6 Absolute Lymphs (auto) 0.30 L Nucleated RBC % 0 Diff Path Review March foll PT 13.9 INR 1.1 APTT 32.2 Radiography Diagnostic Testing: Radiology Impression Chest X-Ray 08/01/21 10:53 IMPRESSION: Bilateral pulmonary infiltrates. Electronically Signed: Rashawn Sharpe DO at 11:33 EDT Tel [phone], Service support , Discharge Plan Triage Chief Complaint: General Illness ED Provider: Panchito Berry Dx/Rx/DC Orders Clinical Impression: Pneumonia due to 2019 novel coronavirus Instructions: Coronavirus Disease 2019 (COVID-19): Caring for Yourself or Others Prescriptions: New dexamethasone [Decadron] 6 mg tablet 6 mg PO DAILY Qty: 10 RF: 0 No Action metoprolol succinate [Toprol XL] 25 mg tablet extended release 24 hr 12.5 mg PO DAILY RF: 0 hydrocodone-acetaminophen 5-325 mg tablet 1 tab PO Q4H PRN (Reason: pain) 4 Days Qty: 14 RF: 0 ondansetron HCl [Zofran] 4 mg tablet 4 mg PO Q6H PRN (Reason: nausea and vomiting) Qty: 10 RF: 0 Primary Care Provider: Melissa Vicente NP Referrals: Melissa Vicente RESEARCH AND DEVELOPMENT TECHNICIAN, RESEARCH AND DEVELOPMENT TECHNICIAN-C [Primary Care Provider] - Disposition Disposition: Home, Self Care
[2021-08-02 14:23] LABS: Pathologist Review Reviewed
== END 2021-08-01 13:00 | disposition home or self-care (01) ==
PROVIDERS: Emergency Provider Emergency Medicine; PCP Nurse Practitioner
DX: U07.1 COVID-19 (principal); J12.82 Pneumonia due to coronavirus disease 2019; R04.0 Epistaxis; Z79.52 Long term (current) use of systemic steroids; Z79.899 Other long term (current) drug therapy
CPT/HCPCS: 36415; 71045; 85025; 85610; 85730; 87426; 99283

== ENCOUNTER → 2021-10-01 10:08 | Outpatient (CLI) | payer MEDICARE, SELFPAY ==
--- NOTE | 2021-10-01 10:39 | BI_ITS ---
MAMMOGRAPHY - BILATERAL SCREENING REASON FOR EXAM: Female, 76 years old. Routine annual screening examination. PERTINENT HISTORY: Mother with breast cancer. History of prior right excisional breast biopsy. TECHNIQUE: Digital bilateral breast stepan (3D mammographic acquisition) in the CC and MLO projections. 2-D mediolateral oblique (MLO) and craniocaudad (CC) views of both breasts were obtained. CAD: Full Field Digital Mammography with Computer Added Detection was performed. COMPARISON: Comparison is made with prior study dated 08/13/2020 and 02/28/2018. FINDINGS: Breast Composition: There are scattered areas of fibroglandular density. There are no dominant masses or suspicious calcifications. No other significant abnormalities are identified. There has been no significant change since the prior study. BI/SCRN MAMM (CAD)W/STEPAN BILAT IMPRESSION: Stable bilateral screening mammogram. Yearly follow-up mammogram recommended. (A) ASSESSMENT CATEGORY: BIRADS Category 1: Negative. A letter regarding these results will be sent to the patient by the facility within 30 days. Approximately 10% of breast cancers are not detected by mammography. A normal mammogram should not delay biopsy of a clinically suspicious abnormality. [id number] Electronically Signed: Hu Mims MD at 9:58 EST , Service support ,
== END ==
PROVIDERS: PCP Nurse Practitioner; Referring Provider Nurse Practitioner; Visit Provider Nurse Practitioner
DX: Z12.31 Encounter for screening mammogram for malignant neoplasm of breast (principal); Z80.3 Family history of malignant neoplasm of breast; Z78.0 Asymptomatic menopausal state
CPT/HCPCS: 77063; 77067

== ENCOUNTER 2021-12-31 14:35 | Outpatient (CLI) | payer MEDICARE, SELFPAY ==
[2021-12-31 14:47] LABS: Absolute Lymphocyte Count 0.66 X10^3/uL (0.83-4.51); Absolute Neutrophil Count 1.4 X10^3/uL (2.0-7.7); Basophil# 0.01 X10^3/uL; Basophil% 0.4 % (0-1); Eosinophil# 0.03 X10^3/uL; Eosinophils% 1.2 % (0-5); Hematocrit 41.7 % (37-47); Hemoglobin 14.1 g/dL (12.0-15.0); Lymphocyte # 0.66 X10^3/ul (0.83-4.51); Lymphocyte % 25.8 % (19-41); Mean Corp Hgb Conc 33.8 g/dL (32-36); Mean Corpuscular Hgb 28.8 pg (27.0-32.0); Mean Corpuscular Volume 85.1 fL (81-99); Monocyte# 0.46 X10^3/uL; NRBC Flagged by Analyzer 0 % (0-5); Neutrophil # 1.39 X10^3/uL (2.7-7.7); Neutrophil % 54.2 % (47-70); POSITIVE MORPHOLOGY YES; Platelet Count 140 K/mm3 (150-450); RBC Distribution Width CV 16.4 % (11.6-14.6); RBC Distribution Width SD 51.4 fl (35.1-43.9); White Blood Count 2.6 K/mm3 (4.4-11.0)
[2021-12-31 14:51] LABS: Differential Indicated SCAN CRITERIA MET
[2021-12-31 14:57] LABS: BUN 20 mg/dL (7-18); BUN/Creat Ratio 29.3 RATIO (10-20); Calcium,Total 9.1 mg/dL (8.5-10.1); Chloride 106 mmol/L (98-107); Creatinine, Serum 0.68 mg/dL (0.55-1.02); EST Glomerular Filtration Rate 89 mL/min (>60); Est Glom Filt Rate - Afr Amer 107 mL/min (>60); Glucose 93 mg/dL (74-106); Phosphorus 3.2 mg/dL (2.5-4.9); Potassium 4.4 mmol/L (3.5-5.1); Sodium Level 141 mmol/L (136-145)
[2021-12-31 15:11] LABS: Reactive Lymphocyte 1+
[2021-12-31 16:07] LABS: D-Dimer Quantitative (DVT/PE) 0.51 FEU/ug/m (0.27-0.49)
== END 2021-12-31 23:59 | disposition home or self-care (01) ==
PROVIDERS: PCP Nurse Practitioner; Visit Provider Nurse Practitioner
DX: R06.02 Shortness of breath (principal)
CPT/HCPCS: 80069; 85025; 85379

== ENCOUNTER 2021-12-31 17:28 | Emergency (ER) | payer MEDICARE, SELFPAY ==
[2021-12-31 17:28] VITALS: BP 130/96; PULSE 101; RESP 18; TEMP 37.3; O2SAT 94; BMI 22.8
--- NOTE | 2021-12-31 20:35 | CT_ITS ---
STUDY: CTA CHEST REASON FOR EXAM: Female, 76 years old. Dyspnea, elevated D-dimer RADIATION DOSAGE (If Supplied By Facility): CTDIvol = ( 6.44 ) mGy, DLP = ( 240.39 ) mGycm TECHNIQUE: The examination was performed with the intravenous administration of IV 100mL Isovue-370. Post-processing of the angiographic images was performed, with multiplanar reformation and 3D reconstruction. Individualized dose optimization techniques were used for this CT. COMPARISON: Chest x-ray 12/31/2020 FINDINGS: Adequate density of contrast in the pulmonary arteries and moderate motion; adequate exam to exclude pulmonary embolism. No pulmonary artery filling defect to suggest pulmonary embolism. There is no evidence of right heart strain. Normal size heart. No pericardial fluid. No mediastinal or hilar lymphadenopathy. Large areas of mild groundglass attenuation seen throughout most of the lungs with scattered areas of normal aeration; mosaic pattern. No associated abnormal reticular opacities or abnormal interstitial pattern. No bronchiectasis. No pleural effusion. Note of significant asymmetric elevation right hemidiaphragm compared to the left Thyroid gland and base of the neck are within normal limits. No axillary lymphadenopathy. No fracture or focal osseous lesion. There is splenomegaly. Highly tortuous splenic artery without aneurysmal dilation. Atherosclerotic calcifications at the origin of the renal and celiac trunk origins. CT/CTA Chest W/WO Contrast IMPRESSION: No pulmonary embolism. Mosaic groundglass attenuation. Nonspecific finding with broad differential diagnosis to include infectious etiology, alveolar hemorrhage, bronchiolitis and hypersensitivity pneumonitis. Splenomegaly. Electronically Signed: Pedro Patel DO at 22:31 EST ,
--- NOTE | 2021-12-31 20:41 | EDS_ITS ---
HPI History of Present Illness Chief Complaint: Abn Labs Informant: patient Narrative Narrative: Resents with referral for CAT scan of the chest. Patient had Covid back in July. She thought she was getting better but over the last 6 or 7 weeks she noticed she has been having a lot more dry coughing. She had hemoptysis with COVID but not since. She rarely brings up any clear sputum now. She sometimes feels her heart racing but is not having chest pain. No nausea vomiting or diarrhea. She had outpatient work-up today that had elevated D-dimer and he was referred here for CAT scan angiogram of the chest. Patient states she also has a nebulizer at home and her doctor gave her some medicine for this today and is ordering more. Her physician also has ordered home oxygen for her. There are not acute symptoms that changed today. Patient was actually being seen for a 6-month follow-up and did not call in for an acute visit today. Nothing makes her symptoms better or worse. PFSH PFS Medical History Kidney stone on left side Home Medications hydrocodone-acetaminophen 1 tab PO Q4H PRN 4 Days #14 tab 03/05/21 [Rx Last Taken Unknown] metoprolol succinate [Toprol XL] 12.5 mg PO DAILY 03/05/21 [History Last Taken Unknown] ondansetron HCl [Zofran] 4 mg PO Q6H PRN #10 tab 03/05/21 [Rx Last Taken Unknown] dexamethasone [Decadron] 6 mg PO DAILY #10 tab 08/01/21 [Rx Last Taken Unknown] prednisone 60 mg PO DAILY #15 tab 12/31/21 [Rx Last Taken Unknown] Allergy/AdvReac Type Severity Reaction Status Date / Time metoclopramide [From Reglan] Allergy Mild Unknown Verified 12/31/21 17:30 Family History Mother Breast cancer Father Cancer Brother Cancer Sister Cancer Surgical History H/O: hysterectomy Hx of colonoscopy Status post right foot surgery Social History Smoking Status: Never smoker alcohol intake: never ROS ROS ED Constitutional Constitutional ED: Denies chills or fever(s) Eyes Eyes: Denies blurry vision ENT ENT ED: Denies rhinorrhea or sore throat Cardiovascular Cardiovascular: Reports palpitations; Denies chest pain Respiratory/Chest Respiratory/Chest: Reports cough, dyspnea, dyspnea on exertion and sputum Gastrointestinal Gastrointestinal: Denies abdominal pain, diarrhea, nausea or vomiting Genitourinary Genitourinary ED: Denies dysuria Musculoskeletal Musculoskeletal: Denies arthralgias or myalgias Integumentary Denies rash Neurologic Neurologic: Denies headache(s) Endocrine Endocrinology: Denies polydipsia or polyuria Allergic/Immunologic Allergic/Immunologic ED: Denies mouth swelling or urticaria EXAM Physical Exam Const Vital Signs: 12/31/21 17:28 12/31/21 22:06 Temperature 99.2 F H 98.5 F Temperature Source Temporal Oral Pulse Rate 101 H 89 Respiratory Rate 18 14 Blood Pressure 130/96 H 120/68 Blood Pressure Mean 107 85 Pulse Ox 94 96 Oxygen Delivery Method Room Air Nasal Cannula Oxygen Flow Rate (L/min) 2 Positive well nourished and well developed General Appearance ED: well developed and NAD; Negative for cyanotic or diaphoretic HEENT Negative for trauma or tenderness Eyes PERRL Neck supple Chest Wall inspection of chest normal and palpation of chest normal Resp normal respiratory effort and clear to auscultation bilaterally Effort and Inspection: Negative for pain with movement Auscultation: Negative for rales, rhonchi or wheezes Cardio regular rate and regular rhythm GI normal to inspection, nondistended, normoactive bowel sounds and non-tender Palpation: soft Back/Spine no CVA tenderness Extremity normal to inspection Neuro Sensorium / Orientation: alert; Negative for lethargic or stuporous Psych mental status grossly normal Skin no rashes or lesions noted and no wounds MDM MDM MDM Narrative Medical decision making narrative: I did review the blood work that was already done as an outpatient. White count was a bit low. D-dimer was just elevated. We did do CTA here. This showed no pulmonary embolus. However there was some diffuse groundglass changes. This could be remaining from Covid. This could be hypersensitivity pneumonitis or other causes. No sign of acute infiltrate. Patient is getting the nebulizer meds and oxygen from her physician. But she is not hypoxic here. We will get her home on a short course of steroids. She has a follow-up appointment in approximately 2 weeks. I am not sure if she was referred to pulmonology or not but recommend that that might be of benefit if she does not completely resolved. She may need further evaluation and may even need biopsy at some point. Lab Data Attestation: I reviewed the patient's lab results. Radiography Diagnostic Testing: Clinical Impression(s) from Imaging Studies Chest CTA 12/31/21 20:35 IMPRESSION: No pulmonary embolism. Mosaic groundglass attenuation. Nonspecific finding with broad differential diagnosis to include infectious etiology, alveolar hemorrhage, bronchiolitis and hypersensitivity pneumonitis. Splenomegaly. Electronically Signed: Pedro Patel, at 22:31 EST , Discharge Plan Triage Chief Complaint: Abn Labs ED Provider: Carlo Cotton Dx/Rx/DC Orders Clinical Impression: Pneumonitis, Chronic cough Instructions: ED Cough Chronic Uncertain Cause Adult Prescriptions: New prednisone 20 MG tablet 60 mg PO DAILY Qty: 15 RF: 0 No Action metoprolol succinate [Toprol XL] 25 mg tablet extended release 24 hr 12.5 mg PO DAILY RF: 0 hydrocodone-acetaminophen 5-325 mg tablet 1 tab PO Q4H PRN (Reason: pain) 4 Days Qty: 14 RF: 0 ondansetron HCl [Zofran] 4 mg tablet 4 mg PO Q6H PRN (Reason: nausea and vomiting) Qty: 10 RF: 0 dexamethasone [Decadron] 6 mg tablet 6 mg PO DAILY Qty: 10 RF: 0 Primary Care Provider: Melissa Vicente NP Referrals: Melissa Vicente NP, [employer] CUST[employer]ER SERVICE MANAGER-C [Primary Care Provider] - As soon as possible Disposition Disposition: Home, Self Care
[2021-12-31 22:06] VITALS: BP 120/68; PULSE 89; RESP 14; TEMP 36.9; O2SAT 96
--- NOTE | 2021-12-31 22:07 | ED.RN ---
pt was 88-89% on ra after ambulating to triage, placed on 2lnc
[2021-12-31] MEDS: predniSONE 20 MG Tablet 60 MG PO (23:08)
[2021-12-31 23:40] VITALS: BP 132/74; PULSE 78; RESP 18; O2SAT 94
== END 2021-12-31 23:42 | disposition home or self-care (01) ==
PROVIDERS: Emergency Provider Emergency Medicine; PCP Nurse Practitioner; Visit Provider Emergency Medicine
DX: J18.9 Pneumonia, unspecified organism (principal); Z86.16 Personal history of COVID-19; Z87.442 Personal history of urinary calculi; R05.3 Chronic cough
CPT/HCPCS: 71275; 80069; 85025; 85379; 99283; Q9967

== ENCOUNTER 2022-02-03 13:54 | Outpatient (CLI) | payer MEDICARE, SELFPAY ==
[2022-02-03 15:12] LABS: Erythrocyte Sedimentation Rate 1 mm/hr (0-30)
[2022-02-03 15:55] LABS: CRP < 2.90 mg/L (0.0-3.0); Rheumatoid Factor < 10.0 IU/mL (<15)
[2022-02-05 16:23] LABS: ANTINUCLEAR ANTIBODIES DIRECT Positive (Negative); Anti-dsDNA Ab <1 IU/mL (0-9)
[2022-02-08 11:35] LABS: CCP IgG Antibodies 6 units (0-19)
== END 2022-02-03 23:59 | disposition home or self-care (01) ==
LOC: MTLAB 13:55
PROVIDERS: PCP Nurse Practitioner; Referring Provider Internal Medicine Pulmonary Disease; Visit Provider Internal Medicine Pulmonary Disease
DX: R06.00 Dyspnea, unspecified (principal)
CPT/HCPCS: 36415; 85652; 86038; 86140; 86200; 86225; 86431

== ENCOUNTER 2022-02-07 10:53 | Outpatient (CLI) | payer MEDICARE, SELFPAY ==
--- NOTE | 2022-02-07 10:56 | RAD_ITS ---
PROCEDURE: Sniff test. DATE OF EXAMINATION: 02/07/2022. INDICATION: Female, 76 years old. Dyspnea. FLUOROSCOPY TIME (if supplied): (18 seconds) minutes/seconds. 2 images were obtained. Elevation of the right hemidiaphragm. No evidence of diaphragmatic paralysis. RAD/Fluoroscopy 1 Hr or Less IMPRESSION: There is elevation of the right hemidiaphragm. No evidence of a diaphragmatic paralysis. Electronically Signed: Hu Mims MD at 15:17 EDT ,
== END 2022-02-07 23:59 | disposition home or self-care (01) ==
LOC: RAD 10:54
PROVIDERS: PCP Nurse Practitioner; Referring Provider Internal Medicine Pulmonary Disease; Visit Provider Internal Medicine Pulmonary Disease
DX: R06.00 Dyspnea, unspecified (principal)
CPT/HCPCS: 76000

== ENCOUNTER → 2022-03-18 | Outpatient (CLI) | payer MEDICARE, SELFPAY ==
--- NOTE | 2022-03-18 10:46 | ECHOD_ITS ---
Reason For Study: PHTN Procedure This was a 2D Doppler, Color Flow transthoracic echocardiogram. The exam was of adequate technical quality. Exam performed in department. Left Ventricle Normal LV size. Left ventricular systolic function is normal. The estimated ejection fraction is 65 %. No evidence for diastolic dysfunction. No regional wall motion abnormalities noted. Right Ventricle Normal RV size. Normal systolic function. Atria Normal left atrium. Normal right atrium. No doppler evidence for ASD. Mitral Valve There is no mitral annular calcification. Mild diffuse mitral valve thickening. Mild to moderate mitral valve prolapse. Mild-Moderate (1-2+) mitral valve insufficiency. Tricuspid Valve Normal tricuspid valve. Mild to moderate (1-2+) tricuspid valve insufficiency. Right ventricular systolic pressure estimated to be 31 mmHg. Aortic Valve Trisinus/trileaflet aortic valve. Mild diffuse aortic valve thickening. Mild (1+) aortic valve insufficiency. Pulmonic Valve The pulmonic valve is not well visualized. Trivial pulmonic valve insufficiency. Great Vessels The aortic root is not well visualized. Pericardium/Pleural No pericardial effusion. MMode/2D Measurements & Calculations LVIDd: 4.3 cm IVSd: 0.90 cm LA dimension: 3.4 cm LVIDs: 3.4 cm LVPWd: 0.87 cm RVDd: 3.1 cm FS: 21.5 % LAV(MOD-bp): 43.8 ml LA A4 area: 18.3 cm2 RA A4 area: 13.4 cm2 LAV(MOD-bp) Indexed: 26.9 ml/m2 LAV(MOD-sp2): 35.1 ml LAV(MOD-sp4): 46.4 ml Time Measurements MV dec time: 0.25 sec Doppler Measurements & Calculations MV E max ravi: 64.9 cm/sec Lat Peak E' Ravi: 6.6 cm/sec Med Peak E' Ravi: 9.4 cm/sec MV A max ravi: 70.6 cm/sec E/E' lat: 9.9 E/E' med: 6.9 MV E/A: 0.92 MV V2 max: 85.2 cm/sec MV P1/2t max ravi: 84.1 cm/sec Ao V2 max: 128.6 cm/sec MV max P.9 mmHg MV P1/2t: 83.1 msec Ao max P.6 mmHg MV V2 mean: 56.8 cm/sec MV dec slope: 296.5 cm/sec2 MV mean P.5 mmHg MVA(P1/2t): 2.6 cm2 MV V2 VTI: 22.0 cm AI max ravi: 366.6 cm/sec LV V1 max: 100.4 cm/sec MR max ravi: 548.7 cm/sec AI max P.7 mmHg LV V1 max P.0 mmHg MR max P.4 mmHg AI dec slope: 179.4 cm/sec2 AI P1/2t: 598.6 msec PA V2 max: 94.5 cm/sec TR max ravi: 265.8 cm/sec TR max P.3 mmHg ECHO/Echo Complete Interpretation Summary Left ventricular systolic function is normal. The estimated ejection fraction is 65 %. Mild diffuse mitral valve thickening. Mild to moderate mitral valve prolapse. Mild-Moderate (1-2+) mitral valve insufficiency. Mild to moderate (1-2+) tricuspid valve insufficiency. Mild diffuse aortic valve thickening. Mild (1+) aortic valve insufficiency. Trivial pulmonic valve insufficiency. Right ventricular systolic pressure estimated to be 31 mmHg. No evidence for diastolic dysfunction. Ordering Physician: Porfirio Abdalla Referring Physician: Nathalie Crowe M.D. Performed By: Mo Pandey RCS
== END | disposition home or self-care (01) ==
LOC: CVS 10:45
PROVIDERS: PCP Internal Medicine; Referring Provider Internal Medicine Pulmonary Disease; Visit Provider Internal Medicine Pulmonary Disease
DX: I27.0 Primary pulmonary hypertension (principal)
CPT/HCPCS: 93306

== ENCOUNTER → 2022-09-16 | Outpatient (CLI) | payer MEDICARE, SELFPAY ==
[2022-09-16 11:57] LABS: Erythrocyte Sedimentation Rate < 1 mm/hr (0-30)
[2022-09-16 12:00] LABS: Absolute Lymphocyte Count 0.42 X10^3/uL (0.83-4.51); Basophil# 0.01 X10^3/uL; Basophil% 0.6 % (0-1); Eosinophil# 0.04 X10^3/uL; Eosinophils% 2.4 % (0-5); Hemoglobin 12.9 g/dL (12.0-15.0); Lymphocyte # 0.42 X10^3/ul (0.83-4.51); Lymphocyte % 25.1 % (19-41); Mean Corp Hgb Conc 32.3 g/dL (32-36); Mean Corpuscular Hgb 29.1 pg (27.0-32.0); Mean Corpuscular Volume 90.3 fL (81-99); Mean Platelet Vol. 10.1 fl (6.2-12.0); Monocyte# 0.18 X10^3/uL; Monocyte% 10.8 % (0-10); NRBC Flagged by Analyzer 0 % (0-5); Neutrophil # 1.01 X10^3/uL (2.7-7.7); Neutrophil % 60.5 % (47-70); POSITIVE DIFFERENTIAL YES; POSITIVE MORPHOLOGY YES; Platelet Count 145 K/mm3 (150-450); RBC Distribution Width CV 15.9 % (11.6-14.6); RBC Distribution Width SD 52.4 fl (35.1-43.9); Red Blood Count 4.43 M/mm3 (4.2-5.4); White Blood Count 1.7 K/mm3 (4.4-11.0)
[2022-09-16 12:01] LABS: Differential Indicated SCAN CRITERIA MET
[2022-09-16 12:27] LABS: AST(SGOT) 39 U/L (15-37); Alanine Aminotransfer ALT/SGPT 64 U/L (13-56); Albumin, Serum 3.9 g/dL (3.2-5.0); Alkaline Phosphatase 168 U/L (45-117); Bilirubin, Direct 0.17 mg/dL (0.00-0.30); CRP < 2.90 mg/L (0.0-3.0); Globulin 2.8 g/dL (2.2-4.2); Protein, Total 6.7 g/dL (6.4-8.2); Rheumatoid Factor < 10.0 IU/mL (<15)
[2022-09-19 14:08] LABS: Anti-Scleroderma-70 AB <0.2 AI (0.0-0.9); SJOGREN'S Anti-SS-A test < 0.2 AI (0.0-0.9); SJOGREN'S Anti-SS-B test < 0.2 AI (0.0-0.9)
[2022-09-19 15:05] LABS: ANTINUCLEAR ANTIBODIES DIRECT Positive (Negative); Anti-dsDNA Ab 1 IU/mL (0-9)
[2022-09-20 07:46] LABS: Pathologist Review Reviewed
[2022-09-21 00:06] LABS: Angiotensin Convert Enzyme 71 U/L (14-82); Cytoplasmic Ab (C-ANCA) <1:20 titer (Neg:<1:20)
[2022-09-21 16:44] LABS: Anti-Smooth Muscle ABS 4 Units (0-19); CCP IgG Antibodies 2 units (0-19); Perinuclear Ab (P-ANCA) <1:20 titer (Neg:<1:20)
== END | disposition home or self-care (01) ==
PROVIDERS: PCP Internal Medicine; Referring Provider Internal Medicine Pulmonary Disease; Visit Provider Internal Medicine Pulmonary Disease
DX: I27.0 Primary pulmonary hypertension (principal)
CPT/HCPCS: 36415; 80076; 82164; 83516; 85025; 85652; 86038; 86140; 86200; 86225; 86235; 86256; 86431

== ENCOUNTER → 2022-10-12 | Outpatient (CLI) | payer MEDICARE, SELFPAY ==
--- NOTE | 2022-10-12 17:45 | CT_ITS ---
INDICATION: PULM HYPERTENSION EXAMINATION: CT CHEST WITHOUT CONTRAST - CT Chest W/O Contrast Injection TECHNIQUE: Helically acquired images were obtained of the chest. A radiation dose optimization technique was used for this scan. IV Contrast dosage and agent: None. COMPARISON: 01/03/2022 FINDINGS: LUNGS, PLEURA AND LARGE AIRWAYS: Mild bilateral apical scarring. Bibasilar linear scarring. No noncalcified nodule or mass. No pleural effusion or thickening. No pneumothorax. THYROID: No thyroid lesions. HEART AND PERICARDIUM: Heart size is normal. No pericardial effusion. CORONARY ARTERIES: Coronary artery calcification is not seen. VESSELS: Thoracic aorta is not dilated. MEDIASTINUM AND AROLDO: No mediastinal or hilar adenopathy. Esophagus is unremarkable. No hiatal hernia. UPPER ABDOMEN: Splenomegaly. BONES: No suspicious lytic or blastic abnormality. CT/Chest without Contrast IMPRESSION: 1. Bilateral scarring. 2. Splenomegaly. Electronically Signed: Zev Brunner MD at 18:10 EST ,
== END | disposition home or self-care (01) ==
LOC: CT 17:43
PROVIDERS: PCP Internal Medicine; Referring Provider Internal Medicine Pulmonary Disease; Visit Provider Internal Medicine Pulmonary Disease
DX: I27.20 Pulmonary hypertension, unspecified (principal)
CPT/HCPCS: 71250

== ENCOUNTER → 2022-10-14 | Outpatient (CLI) | payer MEDICARE, SELFPAY ==
[2022-10-14 12:13] LABS: Absolute Lymphocyte Count 0.31 X10^3/uL (0.83-4.51); Basophil# 0.04 X10^3/uL; Basophil% 2.6 % (0-1); Eosinophil# 0.02 X10^3/uL; Eosinophils% 1.3 % (0-5); Hematocrit 41.3 % (37-47); Hemoglobin 13.3 g/dL (12.0-15.0); Lymphocyte # 0.31 X10^3/ul (0.83-4.51); Lymphocyte % 19.9 % (19-41); Mean Corp Hgb Conc 32.2 g/dL (32-36); Mean Corpuscular Hgb 28.9 pg (27.0-32.0); Mean Corpuscular Volume 89.6 fL (81-99); Monocyte# 0.15 X10^3/uL; Monocyte% 9.6 % (0-10); NRBC Flagged by Analyzer 1.3 % (0-5); Neutrophil # 1.03 X10^3/uL (2.7-7.7); POSITIVE DIFFERENTIAL YES; Platelet Count 144 K/mm3 (150-450); RBC Distribution Width CV 15.9 % (11.6-14.6); Red Blood Count 4.61 M/mm3 (4.2-5.4); White Blood Count 1.6 K/mm3 (4.4-11.0)
[2022-10-14 12:14] LABS: Differential Indicated SCAN CRITERIA MET
[2022-10-14 12:15] LABS: Erythrocyte Sedimentation Rate < 1 mm/hr (0-30)
[2022-10-14 13:05] LABS: AST(SGOT) 44 U/L (15-37); Alanine Aminotransfer ALT/SGPT 63 U/L (13-56); Albumin, Serum 4.1 g/dL (3.2-5.0); Alkaline Phosphatase 153 U/L (45-117); Bilirubin, Direct 0.16 mg/dL (0.00-0.30); CRP < 2.90 mg/L (0.0-3.0); Globulin 2.5 g/dL (2.2-4.2); Protein, Total 6.6 g/dL (6.4-8.2); Rheumatoid Factor < 10.0 IU/mL (<15)
[2022-10-14 16:56] LABS: Differential Comment SLIDE SCANNED
[2022-10-17 15:38] LABS: Pathologist Review Reviewed
[2022-10-17 16:08] LABS: Anti-Scleroderma-70 AB <0.2 AI (0.0-0.9); RNP Ab 1.1 AI (0.0-0.9); SJOGREN'S Anti-SS-A test < 0.2 AI (0.0-0.9); SJOGREN'S Anti-SS-B test < 0.2 AI (0.0-0.9)
[2022-10-17 17:07] LABS: Angiotensin Convert Enzyme 73 U/L (14-82); Cytoplasmic Ab (C-ANCA) <1:20 titer (Neg:<1:20)
[2022-10-18 16:22] LABS: ANTINUCLEAR ANTIBODIES DIRECT Positive (Negative); Anti-dsDNA Ab 1 IU/mL (0-9)
[2022-10-18 16:24] LABS: Anti-Smooth Muscle ABS 5 Units (0-19); CCP IgG Antibodies 0 units (0-19); Perinuclear Ab (P-ANCA) <1:20 titer (Neg:<1:20)
== END | disposition home or self-care (01) ==
PROVIDERS: PCP Internal Medicine; Referring Provider Internal Medicine Pulmonary Disease; Visit Provider Internal Medicine Pulmonary Disease
DX: J84.113 Idiopathic non-specific interstitial pneumonitis (principal); R06.00 Dyspnea, unspecified
CPT/HCPCS: 36415; 80076; 82164; 83516; 85025; 85652; 86038; 86140; 86200; 86225; 86235; 86256; 86431

== ENCOUNTER → 2023-01-26 | Outpatient (CLI) | payer MEDICARE, SELFPAY ==
--- NOTE | 2023-01-26 14:15 | BI_ITS ---
MAMMOGRAPHY - BILATERAL SCREENING REASON FOR EXAM: Female, 77 years old. Routine annual screening examination. PERTINENT HISTORY: Mother with breast cancer. Prior right breast biopsy. TECHNIQUE: Digital bilateral breast stepan (3D mammographic acquisition) in the CC and MLO projections. 2-D mediolateral oblique (MLO) and craniocaudad (CC) views of both breasts were obtained. CAD: Full Field Digital Mammography with Computer Added Detection was performed. COMPARISON: Comparison is made with prior examination dated October 01, 2021 and August 13, 2020. FINDINGS: Breast Composition: There are scattered areas of fibroglandular density. There are no dominant masses or suspicious calcifications. No other significant abnormalities are identified. There has been no significant change since the prior study. BI/SCRN MAMM (CAD)W/STEPAN BILAT IMPRESSION: Stable bilateral screening mammogram. Yearly follow-up mammogram recommended. (A) ASSESSMENT CATEGORY: BIRADS Category 1: Negative. A letter regarding these results will be sent to the patient by the facility within 30 days. Approximately 10% of breast cancers are not detected by mammography. A normal mammogram should not delay biopsy of a clinically suspicious abnormality. [id number] Electronically Signed: Hu Mims MD at 15:07 EDT ,
== END | disposition home or self-care (01) ==
LOC: OPBI 14:13
PROVIDERS: PCP Internal Medicine; Referring Provider Nurse Practitioner Family; Visit Provider Nurse Practitioner Family
DX: Z12.31 Encounter for screening mammogram for malignant neoplasm of breast (principal); Z80.3 Family history of malignant neoplasm of breast
CPT/HCPCS: 77063; 77067

== ENCOUNTER → 2023-03-28 | Outpatient (CLI) | payer MEDICARE, SELFPAY ==
[2023-03-28 15:22] LABS: Absolute Lymphocyte Count 0.51 X10^3/uL (0.83-4.51); Absolute Neutrophil Count 0.8 X10^3/uL (2.0-7.7); Eosinophil# 0.03 X10^3/uL; Eosinophils% 1.8 % (0-5); Hematocrit 36.4 % (37-47); Hemoglobin 12.2 g/dL (12.0-15.0); Lymphocyte # 0.51 X10^3/ul (0.83-4.51); Lymphocyte % 31.1 % (19-41); Mean Corp Hgb Conc 33.5 g/dL (32-36); Mean Corpuscular Volume 86.5 fL (81-99); Mean Platelet Vol. 10.2 fl (6.2-12.0); Monocyte# 0.24 X10^3/uL; Monocyte% 14.6 % (0-10); NRBC Flagged by Analyzer 0 % (0-5); Neutrophil # 0.84 X10^3/uL (2.7-7.7); Neutrophil % 51.3 % (47-70); POSITIVE DIFFERENTIAL YES; POSITIVE MORPHOLOGY YES; Platelet Count 129 K/mm3 (150-450); RBC Distribution Width CV 17.8 % (11.6-14.6); RBC Distribution Width SD 55.8 fl (35.1-43.9); Red Blood Count 4.21 M/mm3 (4.2-5.4); White Blood Count 1.6 K/mm3 (4.4-11.0)
[2023-03-28 15:23] LABS: Differential Indicated SCAN CRITERIA MET
[2023-03-28 15:55] LABS: Differential Comment SCANNED
[2023-03-29 12:06] LABS: Pathologist Review Reviewed
== END | disposition home or self-care (01) ==
LOC: MTLAB 12:38
PROVIDERS: PCP Internal Medicine; Referring Provider Internal Medicine Pulmonary Disease; Visit Provider Internal Medicine Pulmonary Disease
DX: R53.83 Other fatigue (principal)
CPT/HCPCS: 36415; 85025

== ENCOUNTER 2023-05-23 20:23 | Emergency (ER) | payer MEDICARE, SELFPAY ==
[2023-05-23 20:25] VITALS: BP 142/70; PULSE 91; RESP 18; TEMP 35.9; O2SAT 94; BMI 22.1
--- NOTE | 2023-05-23 21:04 | EDS_ITS ---
HPI History of Present Illness Chief Complaint: General Illness Informant: patient and spouse/S.O. Narrative Narrative: Patient states she lost control of her entire body at home for about an hour. She was just standing doing dishes. She states then her arms and legs and whole body started twisting and moving. She never fell to the ground. Throughout this she could walk around and do things but her arms and legs kept moving. He was equal side to side. She had no trouble speaking. She had no trouble seeing. She never lost consciousness at all. She has had this happen before but never this severe. She states she has had a little bit of involvement of her arms before. She usually gets more involvement of her legs and is normally her right leg more than her left. But this time it was all arms and legs relatively equally. She can never figure out what causes this. It is happened for a couple years. She has never seen anyone to have it evaluated. In between episodes she feels perfectly fine. Only medicines are metoprolol and budesonide. These are not new or different. Never had any kidney abnormality. She has not been losing weight. No history of cancers. No headaches. No history of seizures. [facility] Medical History Kidney stone on left side Home Medications hydrocodone-acetaminophen 5-325mg 5mg-325mg 1 tab PO Q4H PRN pain 4 days #14 tabs 03/05/21 [Rx Last Taken Unknown] metoprolol succinate 25 mg tablet,extended release 24 hr (Toprol XL) 12.5 mg PO DAILY 03/05/21 [History Last Taken Unknown] ondansetron HCl 4 mg tablet (Zofran) 4 mg PO Q6H PRN nausea and vomiting #10 tabs 03/05/21 [Rx Last Taken Unknown] dexamethasone 6 mg tablet (Decadron) 6 mg PO DAILY #10 tabs 08/01/21 [Rx Last Taken Unknown] prednisone 20 mg tablet 60 mg (3 x 20 mg) PO DAILY #15 tabs 12/31/21 [Rx Last Taken Unknown] Allergy/AdvReac Type Severity Reaction Status Date / Time metoclopramide [From Reglan] Allergy Mild Unknown Verified 05/23/23 20:25 Family History Mother Breast cancer Father Cancer Brother Cancer Sister Cancer Surgical History H/O: hysterectomy Hx of colonoscopy Status post right foot surgery Social History Smoking Status: Never smoker alcohol intake: never ROS ROS ED ROS Narrative A complete review of systems was performed and is negative except as documented in the history of present illness. Some specific details below. Constitutional: No recent fevers or chills. No rigors. Patient has not generally felt ill. She felt well prior to and after the event. She feels normal now. EYE: No discharge, visual complaints, or pain. She states in the past she has had episodes of double vision but they are not associated with these episodes and she did not have that tonight. ENT: No difficulty swallowing. No swelling. No sinus pressure or pain. No nasal discharge. No change in hearing. No ear pain. CV: No chest pain, pressure or aching. No palpitations or irregular beats. Patient has not been presyncopal or syncopal. Never felt like she was going to pass out. Respiratory: No trouble breathing. No cough. No wheezing. No sputum production. No pain with breathing. GI: No abdominal pain. No nausea vomiting diarrhea. No blood in stool. He has been eating and drinking normally recently. : No frequency dysuria or hematuria. Musculoskeletal: No recent trauma. No pains. No swelling. Skin: No rash. Nondiaphoretic at any time. Neuro: See history of present illness. Endocrine: No polyuria or polydipsia. EXAM Physical Exam Narrative Exam Narrative: CONSTITUTIONAL: Patient is nontoxic in appearance. The patient looks comfort able. Work of breathing looks normal. I watched her walk back from triage with no difficulty. Very coordinated gait. HEENT: No notable trauma. Mucous membranes moist. No sinus tenderness. No tongue injury or lacerations. EYES: No conjunctival injection. No proptosis. No pain with range of motion. No pallor. Pupillary response is normal her pupils started about 2-1/2 to 3 mm. NECK: No meningismus. No JVD. I hear no bruit. CARDIOVASCULAR: Regular rate. Regular rhythm. No notable murmur. No JVD. RESPIRATORY: No respiratory distress. Breathing is unlabored. No wheezes. No rhonchi. No rales. No pain with a deep breath. GASTROINTESTINAL: Not distended. Bowel sounds are normal. No tenderness. No guarding. No rebound. No palpable mass. No bruit. GENITOURINARY: No tenderness over the bladder. No CVA tenderness. MUSCULOSKELETAL: Atraumatic. No peripheral edema. No cord. No tenderness along the deep venous system. No asymmetry. NEUROLOGICAL: Patient is alert and oriented. No focal deficit noted. NIH stroke scale is 0. She has normal strength sensation coordination throughout. No cogwheeling. SKIN: No noted rashes. No diaphoresis. No vesicles noted. No notable pallor. PSYCHIATRIC: Patient is calm. Mood is appropriate. Const Vital Signs: 05/23/23 20:25 05/23/23 21:20 Temperature 96.7 F L Temperature Source Temporal Pulse Rate 91 Respiratory Rate 18 Respiratory Effort Normal Respiratory Pattern Normal Blood Pressure 142/70 H Blood Pressure Mean 94 Pulse Ox 94 MDM MDM MDM Narrative Medical decision making narrative: Plan up and interpretation of patient's CT of the head without contrast shows no acute process and final reading is similar she does have a age related changes. Patient CBC is normal other than low white count which is not new for her. Patient's electrolytes show no marked abnormalities. Minimal elevation of the chloride which is not the cause of her symptoms. Minimal elevation of the glucose at 115. Calcium is normal. Magnesium is normal at 2.1. Patient has had the symptoms before. Although they have not been quite as involved as this episode. She is still totally asymptomatic. Although seizure can cause the shaking she remained totally awake alert and able to walk and function during it. This does not match. Electrolyte abnormalities could certainly cause some spasm and cramping but I be surprised she has full function during this and her electrolytes are essentially normal now. Hypoglycemia could cause something like this but again I be surprised she was that shaking without diaphoresis or confusion. Lab Data Attestation: I reviewed the patient's lab results. Labs: Laboratory Results - last 24 hr 05/23/23 21:11 WBC 1.8 L RBC 4.38 Hgb 12.3 Hct 38.4 MCV 87.7 MCH 28.1 MCHC 32.0 RDW Std Deviation 58.5 H RDW Coeff of Karin 18.3 H Plt Count 96 L MPV 10.0 Immature Gran % (Auto) 1.100 H Neut % (Auto) 47.3 Lymph % (Auto) 39.1 [place] % (Auto) 10.9 H Eos % (Auto) 1.1 Baso % (Auto) 0.5 Absolute Neuts (auto) 0.9 L Absolute Lymphs (auto) 0.72 L Nucleated RBC % 0 Differential Comment SEE COMMENT Diff Path Review May foll Atypical Lymphocytes 2+ Reactive Lymphocytes 1+ Platelet Estimate MOD DEC RBC Morphology N CHROM Anisocytosis RARE Sodium 141 Potassium 4.0 Chloride 108 H Carbon Dioxide 28.0 Anion Gap 5 BUN 21 H Creatinine 0.89 Estim Creat Clear Calc 44.26 Est GFR (MDRD) Af Amer 79 Est GFR (MDRD) Non-Af 65 BUN/Creatinine Ratio 23.6 H Glucose 115 H Calcium 9.0 Magnesium 2.1 Radiography Diagnostic Testing: Clinical Impression(s) from Imaging Studies Brain CT 05/23/23 21:20 IMPRESSION: Normal unenhanced CT scan of the brain. Electronically Signed: David Hilario MD at 21:43 EDT , EKG Initial EKG: Comments: My independent interpretation the patient's EKG shows normal sinus rhythm with a rate of 91. No ectopy. No acute ST elevation or depression. RI interval, QRS duration and QTc are all normal. Discharge Plan Triage Chief Complaint: General Illness ED Provider: Carlo Cotton Dx/Rx/DC Orders Clinical Impression: Episode of shaking Instructions: ED Symptoms With Uncertain Cause Prescriptions: No Action metoprolol succinate [Toprol XL] 25 mg tablet extended release 24 hr 12.5 mg PO DAILY Patient Comments: TAKE 1 2 (ONE HALF) TABLET BY MOUTH ONCE DAILY hydrocodone-acetaminophen 5-325 mg tablet 1 tab PO Q4H PRN (Reason: pain) 4 Days Qty: 14 0RF ondansetron HCl [Zofran] 4 mg tablet 4 mg PO Q6H PRN (Reason: nausea and vomiting) Qty: 10 0RF dexamethasone [Decadron] 6 mg tablet 6 mg PO DAILY Qty: 10 0RF prednisone 20 MG tablet 60 mg PO DAILY Qty: 15 0RF Primary Care Provider: Dhara Jiménez Referrals: Dhara Jiménez, NURSING HOME DIRECTOR-C [Primary Care Provider] - Keep Raul appointment (Keep your appointment on Monday.) Disposition Disposition: Home, Self Care
--- NOTE | 2023-05-23 21:20 | CT_ITS ---
STUDY: CT BRAIN WITHOUT CONTRAST REASON FOR EXAM: Female, 78 years old. Shaking RADIATION DOSAGE (If Supplied By Facility): CTDIvol = ( 44.99 ) mGy, DLP = ( 796.11 ) mGycm TECHNIQUE: Transaxial CT imaging of the brain was performed without administration of intravenous contrast material. Individualized dose optimization techniques were used for this CT. COMPARISON: May 29, 2018. FINDINGS: Normal soft tissue structures. Normal calvarium. 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 Normal size ventricles and extra-axial spaces for the patient''s age. Normal white matter tracts of the cerebral hemispheres. There are small punctate calcifications of the basal ganglia which are seen in the aging brain as a normal variant. Normal brainstem. Normal cerebellum. There is no intracranial hemorrhage. There are no findings of an acute ischemic infarction. Normal visualized paranasal sinuses. CT/Brain/Head without Contrast IMPRESSION: Normal unenhanced CT scan of the brain. Electronically Signed: David Hilario MD at 21:43 EDT ,
[2023-05-23 21:21] LABS: Absolute Lymphocyte Count 0.72 X10^3/uL (0.83-4.51); Absolute Neutrophil Count 0.9 X10^3/uL (2.0-7.7); Basophil# 0.01 X10^3/uL; Basophil% 0.5 % (0-1); Eosinophil# 0.02 X10^3/uL; Eosinophils% 1.1 % (0-5); Hematocrit 38.4 % (37-47); Hemoglobin 12.3 g/dL (12.0-15.0); Lymphocyte # 0.72 X10^3/ul (0.83-4.51); Lymphocyte % 39.1 % (19-41); Mean Corpuscular Hgb 28.1 pg (27.0-32.0); Mean Corpuscular Volume 87.7 fL (81-99); Monocyte% 10.9 % (0-10); NRBC Flagged by Analyzer 0 % (0-5); Neutrophil # 0.87 X10^3/uL (2.7-7.7); Neutrophil % 47.3 % (47-70); POSITIVE COUNT YES; POSITIVE DIFFERENTIAL YES; POSITIVE MORPHOLOGY YES; Platelet Count 96 K/mm3 (150-450); RBC Distribution Width CV 18.3 % (11.6-14.6); RBC Distribution Width SD 58.5 fl (35.1-43.9); Red Blood Count 4.38 M/mm3 (4.2-5.4); White Blood Count 1.8 K/mm3 (4.4-11.0)
[2023-05-23 21:22] LABS: Differential Indicated SCAN CRITERIA MET
[2023-05-23 21:34] LABS: Anion Gap 5 (5-15); BUN 21 mg/dL (7-18); BUN/Creat Ratio 23.6 RATIO (10-20); Chloride 108 mmol/L (98-107); Creatinine, Serum 0.89 mg/dL (0.55-1.02); EST Glomerular Filtration Rate 65 mL/min (>60); Est Glom Filt Rate - Afr Amer 79 mL/min (>60); Estimated Creatinine Clearance 44.26 ml/min; Glucose 115 mg/dL (74-106); Magnesium 2.1 mg/dL (1.6-2.6); Sodium Level 141 mmol/L (136-145)
[2023-05-23 21:48] LABS: Atypical Lymphocyte 2+ %
[2023-05-23 21:49] LABS: Anisocytosis RARE; Platelet Estimate MOD DEC (ADEQ); Reactive Lymphocyte 1+; Red Cell Morphology N CHROM NORMAL (NORM C&C)
[2023-05-23 22:45] VITALS: BP 108/56; PULSE 87; RESP 17; O2SAT 100
[2023-05-25 09:20] LABS: Pathologist Review Reviewed
== END 2023-05-23 22:51 | disposition home or self-care (01) ==
PROVIDERS: Emergency Provider Emergency Medicine; PCP Nurse Practitioner Family; Visit Provider Emergency Medicine
DX: R25.9 Unspecified abnormal involuntary movements (principal); Z79.899 Other long term (current) drug therapy
CPT/HCPCS: 70450; 80048; 83735; 85025; 93005; 99283; A4216

== ENCOUNTER → 2023-09-11 | Outpatient (CLI) | payer MEDICARE, SELFPAY ==
[2023-09-11 10:49] LABS: Vitamin B12 750 pg/mL (211-911)
[2023-09-11 10:56] LABS: Ammonia < 10.0 umol/L (11-32)
[2023-09-11 12:01] LABS: ALB/GLOB Ratio 1.4 RATIO (0.9-2.4); AST(SGOT) 41 U/L (15-37); Alanine Aminotransfer ALT/SGPT 51 U/L (13-56); Albumin, Serum 3.9 g/dL (3.2-5.0); Alkaline Phosphatase 131 U/L (45-117); Anion Gap 7 (5-15); BUN 22 mg/dL (7-18); BUN/Creat Ratio 27.5 RATIO (10-20); Calcium,Total 8.9 mg/dL (8.5-10.1); Chloride 109 mmol/L (98-107); EST Glomerular Filtration Rate 73 mL/min (>60); Est Glom Filt Rate - Afr Amer 89 mL/min (>60); Free T3 2.4 pg/mL (2.18-3.98); Globulin 2.8 g/dL (2.2-4.2); Glucose 98 mg/dL (74-106); Magnesium 2.3 mg/dL (1.6-2.6); Potassium 3.8 mmol/L (3.5-5.1); Protein, Total 6.7 g/dL (6.4-8.2); Sodium Level 142 mmol/L (136-145); T4 Free Direct 1.03 ng/dL (0.76-1.46); Thyroid Stim Hormone (TSH) 2.15 uIU/mL (0.358-3.74)
[2023-09-11 12:26] LABS: Hematocrit 40.8 % (37-47); Hemoglobin 13.1 g/dL (12.0-15.0); Mean Corp Hgb Conc 32.1 g/dL (32-36); Mean Corpuscular Hgb 28.3 pg (27.0-32.0); Mean Corpuscular Volume 88.1 fL (81-99); Mean Platelet Vol. 10.6 fl (6.2-12.0); Platelet Count 129 K/mm3 (150-450); RBC Distribution Width SD 54.3 fl (35.1-43.9); Red Blood Count 4.63 M/mm3 (4.2-5.4); White Blood Count 1.6 K/mm3 (4.4-11.0)
--- NOTE | 2023-09-11 15:53 | MRI_ITS ---
INDICATION: Mild cognitive impairment; abnormal limb movement EXAMINATION: MRI - MR Brain WO/W Contrast TECHNIQUE: Multiplanar and multisequence MR images of the brain were obtained without and with gadolinium. IV Contrast Dosage and Agent: None. COMPARISON: MR BrainMay 2020 FINDINGS: BRAIN PARENCHYMA: Normal size of the ventricles and extra-axial spaces for the patient''''s age. Normal white matter tracts of the supratentorial brain. Normal bilateral basal ganglia. Normal thalami. There is no extra-axial fluid accumulation. Normal flow voids within the major intracranial circulation suggesting patency by spin echo criteria. Normal venous enhancement. There is no enhancing intra-axial or extra-axial abnormality. Normal sella turcica, pituitary gland, infundibular stalk, optic chiasm and hypothalamus. Normal tectal plate and pineal gland. Normal midbrain, weston and medulla. Normal cerebellum. Normal basal cisterns. Normal bilateral temporal bones. Normal bilateral internal auditory canals. Abnormal hypertrophy of all extraocular muscles. Normal orbital globes and optic nerves. No abnormal contrast enhancement of the optic nerves and optic nerve sheaths. Normal visualized paranasal sinuses. Normal calvarium and skull base. Normal visualized soft tissue structures. Normal visualized upper cervical spine. MRI/Brain W/WO Contrast IMPRESSION: 1. Normal unenhanced and enhanced MRI of the brain. 2. Persistent enlargement of the extraocular muscles of both orbits. 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 They are unchanged when compared to CT orbits at 03/11/2021. Electronically Signed: Tegan Miramontes MD at 8:07 EST ,
[2023-09-13 22:07] LABS: Free Kappa Light Chains 16.8 mg/L (3.3-19.4); Vitamin B1, Thiamine 108.9 nmol/L (66.5-200.0)
== END | disposition home or self-care (01) ==
LOC: MRI 15:50
PROVIDERS: PCP Nurse Practitioner Family; Referring Provider Psychiatry & Neurology Neurology; Visit Provider Psychiatry & Neurology Neurology
DX: R25.9 Unspecified abnormal involuntary movements (principal); G62.9 Polyneuropathy, unspecified; G31.84 Mild cognitive impairment of uncertain or unknown etiology; Z86.39 Personal history of other endocrine, nutritional and metabolic disease
CPT/HCPCS: 36415; 70553; 80053; 82140; 82607; 82652; 82746; 83735; 83883; 84425; 84439; 84443; 84481; 85027; A9575

== ENCOUNTER → 2023-09-14 | Outpatient (CLI) | payer MEDICARE, SELFPAY ==
[2023-09-14 11:08] LABS: Glucose GTT- Fasting 94 mg/dL (74-106)
[2023-09-14 11:10] LABS: Glucose GTT-30 minutes 142 mg/dL (110-170)
[2023-09-14 11:29] LABS: Glucose GTT- 1 Hour 134 mg/dL (120-170)
[2023-09-14 12:39] LABS: Glucose GTT- 2 Hour 110 mg/dL (70-120)
[2023-09-14 13:49] LABS: Glucose GTT- 3 Hour 90 mg/dL (74-106)
== END | disposition home or self-care (01) ==
LOC: LAB 09:53
PROVIDERS: PCP Nurse Practitioner Family; Referring Provider Psychiatry & Neurology Neurology; Visit Provider Psychiatry & Neurology Neurology
DX: R25.9 Unspecified abnormal involuntary movements (principal)
CPT/HCPCS: 36415; 82951; 82952

== ENCOUNTER → 2023-10-04 | Outpatient (CLI) | payer MEDICARE, SELFPAY | END | disposition home or self-care (01) | LOC: PSN 08:16 | PROVIDERS: PCP Nurse Practitioner Family; Referring Provider Psychiatry & Neurology Neurology; Visit Provider Psychiatry & Neurology Neurology | DX: R25.9 Unspecified abnormal involuntary movements (principal); G31.84 Mild cognitive impairment of uncertain or unknown etiology | CPT/HCPCS: 95819 ==

== ENCOUNTER → 2023-10-13 | Outpatient (CLI) | payer MEDICARE, SELFPAY ==
--- NOTE | 2023-10-13 07:47 | ECHOD_ITS ---
Reason For Study: ABN MOVEMENTS Procedure This was a 2D Doppler, Color Flow transthoracic echocardiogram. Exam performed in department. Left Ventricle Normal size and thickness. The left ventricular ejection fraction is 65 %. Stage 2 diastolic dysfunction. Right Ventricle Normal right ventricle. Atria The left and right atria are normal. Bubble contrast study is negative for PFO/ASD. Mitral Valve Mild diffuse mitral valve thickening. Mild prolapse of the posterior mitral leaflet. Mild mitral regurgitation. Tricuspid Valve Moderate (2+) tricuspid valve insufficiency. Right ventricular systolic pressure estimated to be 41 mmHg. Aortic Valve Trisinus/trileaflet aortic valve. Mild (1+) aortic valve insufficiency. Pulmonic Valve The pulmonic valve is not well visualized. Trivial pulmonic valve insufficiency. Great Vessels Normal sized aortic root. Pericardium/Pleural No pericardial effusion. Medication 22 gauge I.V. with prn adaptor inserted into right arm. Performed a rapid injection of agitated mix of 9 cc saline and 1cc air to assess for atrial septal defect. MMode/2D Measurements & Calculations LVIDd: 4.4 cm IVSd: 1.0 cm Ao root diam: 3.2 cm LVIDs: 3.3 cm LVPWd: 0.88 cm RVDd: 3.1 cm FS: 24.0 % LAV(MOD-bp): 65.7 ml LVAd ap4: 23.8 cm2 SV(MOD-sp4): 41.0 ml LAV(MOD-bp) Indexed: 40.2 ml/m2 LVLd ap4: 7.4 cm LAV(MOD-sp2): 58.7 ml EDV(MOD-sp4): 63.5 ml LAV(MOD-sp4): 59.9 ml EDV(sp4-el): 64.8 ml LVAs ap4: 12.2 cm2 LVLs ap4: 5.6 cm ESV(MOD-sp4): 22.5 ml ESV(sp4-el): 22.5 ml EF(MOD-sp4): 64.5 % EF(sp4-el): 65.3 % SV(sp4-el): 42.3 ml LA A4 area: 21.1 cm2 LA dimension(2D): 3.5 cm RA A4 area: 15.9 cm2 TAPSE: 2.3 cm Time Measurements MV dec time: 0.23 sec Doppler Measurements & Calculations MV E max ravi: 64.7 cm/sec Lat Peak E' Ravi: 8.5 cm/sec Med Peak E' Ravi: 8.2 cm/sec MV A max ravi: 61.6 cm/sec E/E' lat: 7.6 E/E' med: 7.8 MV E/A: 1.1 MV V2 max: 76.1 cm/sec MV dec slope: 290.9 cm/sec2 Ao V2 max: 138.7 cm/sec MV max P.3 mmHg Ao max P.7 mmHg MV V2 mean: 52.7 cm/sec Ao V2 mean: 98.3 cm/sec MV mean P.2 mmHg Ao mean P.3 mmHg MV V2 VTI: 29.9 cm Ao V2 VTI: 30.3 cm AV (velocity ratio): 0.86 AI max ravi: 372.9 cm/sec LV V1 max: 109.9 cm/sec PA V2 max: 97.4 cm/sec AI max P.6 mmHg LV V1 max P.9 mmHg PA V2 mean: 64.8 cm/sec AI dec slope: 160.7 cm/sec2 LV V1 mean P.3 mmHg AI P1/2t: 679.4 msec LV V1 mean: 67.1 cm/sec LV V1 VTI: 26.0 cm TR max ravi: 278.0 cm/sec TR max P.9 mmHg ECHO/Echo Complete Interpretation Summary The left ventricular ejection fraction is 65 %. Stage 2 diastolic dysfunction. Mild prolapse of the posterior mitral leaflet. Mild mitral regurgitation. Moderate (2+) tricuspid valve insufficiency. Right ventricular systolic pressure estimated to be 41 mmHg. Mild (1+) aortic valve insufficiency. Bubble contrast study is negative for PFO/ASD. Ordering Physician: Blair Veronica Referring Physician: Blair Veronica Performed By: Narcisa Phillip RCS
--- NOTE | 2023-10-13 07:47 | CDU_ITS ---
Reason For Study: TIA Rt. Velocities/BP Lt. Velocities/BP Prox CCA 69.9/18.2 cm/sec. Prox CCA 94.2/15.7 cm/sec. Mid CCA 54.6/13.6 cm/sec. Mid CCA 79.6/17.5 cm/sec. Dist CCA 66.8/18.8 cm/sec. Dist CCA 61.0/15.7 cm/sec. Prox ICA 49.4/19.7 cm/sec. Prox ICA 69.5/18.5 cm/sec. Mid ICA 71.2/27.6 cm/sec. Mid ICA 65.8/19.5 cm/sec. Dist ICA 79.9/29.2 cm/sec. Dist ICA 81.8/29.9 cm/sec. Rt. ICA/CCA = 1.5. Lt. ICA/CCA = 1.0. Prox ECA 72.1/8.4 cm/sec. Prox ECA 64.2/7.5 cm/sec. Rt. Vert. 30.2/7.5 cm/sec. Lt. Vert. 52.5/18.5 cm/sec. Right Extracranial There is intimal thickening but no significant atherosclerotic plaque noted in the right common carotid artery. There is intimal thickening but no significant atherosclerotic plaque noted in the right internal carotid artery. There is homogeneous, smooth atherosclerotic plaque noted in the right external carotid artery. Antegrade flow is noted in the right vertebral artery. Left Extracranial There is intimal thickening but no significant atherosclerotic plaque noted in the left common carotid artery. There is intimal thickening but no significant atherosclerotic plaque noted in the left internal carotid artery. There is intimal thickening but no significant atherosclerotic plaque noted in the left external carotid artery. Antegrade flow is noted in the left vertebral artery. Procedure Carotid Duplex [id number]. This is a Carotid Duplex examination using B-mode, color flow and specral Doppler. The exam was diagnostic. Exam performed in department. VL/Carotid Duplex Ultrasound Interpretation Summary Normal right extracranial internal carotid. Normal left extracranial internal carotid. Patent and antegrade vertebrals bilaterally. Ordering Physician: Blair Veronica Referring Physician: Blair Veronica Performed By: Antony Awan RVT
== END | disposition home or self-care (01) ==
PROVIDERS: PCP Nurse Practitioner Family; Referring Provider Psychiatry & Neurology Neurology; Visit Provider Psychiatry & Neurology Neurology
DX: Z86.73 Personal history of transient ischemic attack (TIA), and cerebral infarction without residual deficits (principal)
CPT/HCPCS: 93306; 93880

== ENCOUNTER → 2024-03-15 | Outpatient (CLI) | payer MEDICARE, SELFPAY ==
--- NOTE | 2024-03-15 12:30 | BI_ITS ---
MAMMOGRAPHY - BILATERAL SCREENING REASON FOR EXAM: Female, 78 years old. Routine annual screening examination. PERTINENT HISTORY: Mother with breast cancer. History of prior right breast biopsy. TECHNIQUE: Digital bilateral breast stepan (3D mammographic acquisition) in the CC and MLO projections. 2-D mediolateral oblique (MLO) and craniocaudad (CC) views of both breasts were obtained. CAD: Full Field Digital Mammography with Computer Added Detection was performed. COMPARISON: Comparison is made with prior study January 26, 2023 and October 01, 2021. FINDINGS: Breast Composition: The breasts are heterogeneously dense, which may obscure small masses. There are no dominant masses or suspicious calcifications. No other significant abnormalities are identified. There has been no significant change since the prior study. BI/SCRN MAMM (CAD)W/STEPAN BILAT IMPRESSION: Stable bilateral screening mammogram. Yearly follow-up mammogram recommended. (A) ASSESSMENT CATEGORY: BIRADS Category 1: Negative. A letter regarding these results will be sent to the patient by the facility within 30 days. Approximately 10% of breast cancers are not detected by mammography. A normal mammogram should not delay biopsy of a clinically suspicious abnormality. [id number] Electronically Signed: Hu Mims MD at 14:05 EDT ,
== END | disposition home or self-care (01) ==
LOC: OPBI 12:24
PROVIDERS: PCP Nurse Practitioner Family; Referring Provider Nurse Practitioner Family; Visit Provider Nurse Practitioner Family
DX: Z12.31 Encounter for screening mammogram for malignant neoplasm of breast (principal); Z80.3 Family history of malignant neoplasm of breast
CPT/HCPCS: 77063; 77067

== ENCOUNTER → 2024-03-27 | Outpatient (CLI) | payer MEDICARE, SELFPAY ==
[2024-03-27 08:20] LABS: Absolute Lymphocyte Count 0.37 X10^3/uL (0.83-4.51); Absolute Neutrophil Count 0.9 X10^3/uL (2.0-7.7); Eosinophil# 0.02 X10^3/uL; Eosinophils% 1.3 % (0-5); Hematocrit 39.1 % (37-47); Hemoglobin 12.4 g/dL (12.0-15.0); Lymphocyte # 0.37 X10^3/ul (0.83-4.51); Lymphocyte % 23.3 % (19-41); Mean Corp Hgb Conc 31.7 g/dL (32-36); Mean Corpuscular Hgb 27.7 pg (27.0-32.0); Mean Corpuscular Volume 87.3 fL (81-99); Mean Platelet Vol. 10.4 fl (6.2-12.0); Monocyte# 0.33 X10^3/uL; Monocyte% 20.8 % (0-10); NRBC Flagged by Analyzer 0 % (0-5); Neutrophil # 0.86 X10^3/uL (2.7-7.7); POSITIVE DIFFERENTIAL YES; POSITIVE MORPHOLOGY YES; Platelet Count 108 K/mm3 (150-450); RBC Distribution Width CV 17.5 % (11.6-14.6); RBC Distribution Width SD 56.1 fl (35.1-43.9); Red Blood Count 4.48 M/mm3 (4.2-5.4); White Blood Count 1.6 K/mm3 (4.4-11.0)
[2024-03-27 08:21] LABS: Differential Indicated SCAN CRITERIA MET
[2024-03-27 08:43] LABS: ALB/GLOB Ratio 1.3 RATIO (0.9-2.4); AST(SGOT) 58 U/L (15-37); Alanine Aminotransfer ALT/SGPT 66 U/L (13-56); Albumin, Serum 3.8 g/dL (3.2-5.0); Alkaline Phosphatase 188 U/L (45-117); Anion Gap 6 (5-15); BUN 17 mg/dL (7-18); BUN/Creat Ratio 19.6 RATIO (10-20); Bilirubin, Direct 0.17 mg/dL (0.00-0.30); Calcium,Total 8.8 mg/dL (8.5-10.1); Chloride 108 mmol/L (98-107); Cholesterol 170 mg/dL (200); Creatinine, Serum 0.87 mg/dL (0.55-1.02); EST Glomerular Filtration Rate 67 mL/min (>60); Est Glom Filt Rate - Afr Amer 81 mL/min (>60); Glucose 104 mg/dL (74-106); High Density Lipoprotein 42 mg/dL; LDH 412 U/L (84-246); Protein, Total 6.8 g/dL (6.4-8.2); Sodium Level 141 mmol/L (136-145); Triglycerides 202 mg/dL; Very Low Density Lipoprotein 40 mg/dL (5-40)
[2024-03-27 08:44] LABS: Atypical Lymphocyte 1+ %
[2024-03-27 15:25] LABS: Pathologist Review Reviewed
== END | disposition home or self-care (01) ==
LOC: PAVLAB 08:01
PROVIDERS: PCP Nurse Practitioner Family; Referring Provider Nurse Practitioner Family; Visit Provider Nurse Practitioner Family
DX: R79.89 Other specified abnormal findings of blood chemistry (principal); D61.818 Other pancytopenia; Z13.220 Encounter for screening for lipoid disorders; I10 Essential (primary) hypertension
CPT/HCPCS: 36415; 80053; 80061; 82248; 83615; 85025

== ENCOUNTER → 2024-04-09 | Outpatient (CLI) | payer MEDICARE, SELFPAY ==
--- NOTE | 2024-04-09 12:55 | BD_ITS ---
STUDY: DUAL ENERGY X-RAY ABSORPTIOMETRY / DXA REASON FOR EXAM: Female, 79 years old. [id number] TECHNIQUE: Bone Mineral Density (BMD) measurements of lumbar spine and bilateral hips were obtained. COMPARISON: Comparison is made with prior study dated August 13, 2020. FINDINGS: Lumbar Spine (L1-L4): g/cm2 (0.773) / T-score (-2.2) / Z-score (0.4) Findings are suggestive of osteopenia with a high fracture risk. Left Femur Total: g/cm2 (0.668) / T-score (-2.2) / Z-score (-0.2) Left Femoral Neck: g/cm2 (0.482) / T-score (-3.3) / Z-score (-1.0) Right Femur Total: g/cm2 (0.639) / T-score (-2.5) / Z-score (-0.4) Right Femoral Neck: g/cm2 (0.474) / T-score (-3.4) / Z-score (-1.1) The T-Scores on the most recent prior examination were: Lumbar Spine (L1-L4): There has been improvement of bone density since the previous examination. Left Femur Total: which represents an improvement of 9.3%. Right Femur Total: which represents an improvement of 9.1%. BD/Dexa Bone Density Study IMPRESSION: The patient is considered osteoporotic as outlined below according to World Clay Organization (WHO) criteria with a high fracture risk. There has been improvement of bone density since the previous examination. Reference Information: The T-score is the number of standard deviations above or below the standard which is normal for young adults at their peak bone mineral density. The World Health Organization (WHO) interprets the T-scores as follows: Above -1 Normal bone density Between -1 and -2.5 Osteopenia Equal to / or below -2.5 Osteoporosis As a practical clinical guideline, osteopenia may be graded as follows: Mild -1 through -1.5 Moderate -1.6 through -2.0 Severe -2.1 through -2.4 The Z-score is the number of standard deviations above or below age-matched controls. A Z-score of less than -1.5 would be considered abnormal. References: 1. NIH Osteoporosis and Related Bone Diseases www osteo.org 2. International Society for Clinical Densitometry www iscd.org 3. National Osteoporosis Foundation www nof.org Electronically Signed: Hu Mims MD at 14:16 EDT ,
== END | disposition home or self-care (01) ==
LOC: OPBD 12:49
PROVIDERS: PCP Nurse Practitioner Family; Referring Provider Nurse Practitioner Family; Visit Provider Nurse Practitioner Family
DX: Z78.0 Asymptomatic menopausal state (principal)
CPT/HCPCS: 77080

== ENCOUNTER → 2024-05-22 | Outpatient (CLI) | payer MEDICARE, SELFPAY | END | disposition home or self-care (01) | PROVIDERS: PCP Nurse Practitioner Family; Referring Provider Internal Medicine Pulmonary Disease; Visit Provider Internal Medicine Pulmonary Disease | DX: R05.9 Cough, unspecified (principal) | CPT/HCPCS: 87070; 87205 ==

== ENCOUNTER → 2024-10-02 | Outpatient (CLI) | payer MEDICARE, SELFPAY ==
[2024-10-02 14:58] LABS: CREATININE FINGERSTICK 1.4 mg/dL (0.55-1.02)
== END | disposition home or self-care (01) ==
LOC: CT 14:29
PROVIDERS: PCP Nurse Practitioner Family; Referring Provider Nurse Practitioner Family; Visit Provider Nurse Practitioner Family
DX: R91.8 Other nonspecific abnormal finding of lung field (principal)
CPT/HCPCS: 71260; Q9967

== ENCOUNTER → 2024-12-27 | Outpatient (CLI) | payer MEDICARE, SELFPAY ==
[2024-12-27 12:38] LABS: Absolute Lymphocyte Count 0.39 X10^3/uL (0.83-4.51); Absolute Neutrophil Count 0.6 X10^3/uL (2.0-7.7); Eosinophil# 0.02 X10^3/uL; Eosinophils% 1.6 % (0-5); Hematocrit 37.9 % (37-47); Hemoglobin 12.2 g/dL (12.0-15.0); Lymphocyte # 0.39 X10^3/ul (0.83-4.51); Lymphocyte % 30.7 % (19-41); Mean Corp Hgb Conc 32.2 g/dL (32-36); Mean Corpuscular Hgb 28.3 pg (27.0-32.0); Mean Corpuscular Volume 87.9 fL (81-99); Mean Platelet Vol. 10.1 fl (6.2-12.0); Monocyte# 0.26 X10^3/uL; Monocyte% 20.5 % (0-10); NRBC Flagged by Analyzer 0 % (0-5); Neutrophil # 0.59 X10^3/uL (2.7-7.7); Neutrophil % 46.4 % (47-70); POSITIVE COUNT YES; POSITIVE DIFFERENTIAL YES; POSITIVE MORPHOLOGY YES; Platelet Count 122 K/mm3 (150-450); RBC Distribution Width CV 17.1 % (11.6-14.6); RBC Distribution Width SD 54.9 fl (35.1-43.9); Red Blood Count 4.31 M/mm3 (4.2-5.4)
[2024-12-27 12:39] LABS: Differential Indicated SCAN CRITERIA MET
[2024-12-27 13:11] LABS: White Blood Count 1.3 K/mm3 (4.4-11.0)
[2024-12-30 14:05] LABS: Pathologist Review Reviewed
== END | disposition home or self-care (01) ==
LOC: MTLAB 10:59
PROVIDERS: PCP Nurse Practitioner Family; Referring Provider Internal Medicine Pulmonary Disease; Visit Provider Internal Medicine Pulmonary Disease
DX: R09.02 Hypoxemia (principal)
CPT/HCPCS: 36415; 85025; 86235

== ENCOUNTER → 2025-01-15 | Outpatient (CLI) | payer MEDICARE, SELFPAY ==
--- NOTE | 2025-01-15 07:55 | RAD_ITS ---
PROCEDURE: FLUOROSCOPY 1 HR OR LESS REASON FOR EXAM: Dyspnea. Elevation of the right hemidiaphragm. TECHNIQUE: Standing AP view(s) of the thoracic and lumbar spine. COMPARISON: None. FINDINGS: Fluoroscopic imaging of the right and left hemidiaphragms during inspiration expiration. There is elevation of the right hemidiaphragm. There is normal translation of the diaphragms during inspiration and expiration maneuvers. RAD/Fluoroscopy 1 Hr or Less IMPRESSION: No evidence of diaphragmatic paralysis. Reading Location: [place] [id number]
[2025-01-15 09:16] LABS: Erythrocyte Sedimentation Rate < 1 mm/hr (0-30)
[2025-01-15 09:20] LABS: Absolute Lymphocyte Count 0.29 X10^3/uL (0.83-4.51); Absolute Neutrophil Count 0.6 X10^3/uL (2.0-7.7); Basophil# 0.03 X10^3/uL; Basophil% 2.5 % (0-1); Eosinophil# 0.02 X10^3/uL; Eosinophils% 1.7 % (0-5); Hematocrit 37.5 % (37-47); Hemoglobin 12.3 g/dL (12.0-15.0); Lymphocyte # 0.29 X10^3/ul (0.83-4.51); Lymphocyte % 24.6 % (19-41); Mean Corp Hgb Conc 32.8 g/dL (32-36); Mean Corpuscular Hgb 28.7 pg (27.0-32.0); Mean Corpuscular Volume 87.4 fL (81-99); Mean Platelet Vol. 9.8 fl (6.2-12.0); Monocyte# 0.22 X10^3/uL; Monocyte% 18.6 % (0-10); NRBC Flagged by Analyzer 0 % (0-5); Neutrophil # 0.61 X10^3/uL (2.7-7.7); Neutrophil % 51.8 % (47-70); POSITIVE COUNT YES; POSITIVE DIFFERENTIAL YES; Platelet Count 111 K/mm3 (150-450); RBC Distribution Width CV 16.7 % (11.6-14.6); RBC Distribution Width SD 53.1 fl (35.1-43.9); Red Blood Count 4.29 M/mm3 (4.2-5.4); White Blood Count 1.2 K/mm3 (4.4-11.0)
[2025-01-15 09:38] LABS: Differential Indicated SCAN CRITERIA MET
[2025-01-15 09:45] LABS: Pathologist Review May foll
[2025-01-15 10:23] LABS: CRP < 3.00 mg/L (0.0-3.0)
[2025-01-15 10:54] LABS: Rubella IgG REAC (Nonreactive)
[2025-01-16 12:08] LABS: ANTINUCLEAR ANTIBODIES DIRECT Negative (Negative); Anti-Scleroderma-70 AB <0.2 AI (0.0-0.9); Anti-dsDNA Ab <1 IU/mL (0-9); RNP Ab 0.5 AI (0.0-0.9); SJOGREN'S Anti-SS-A test < 0.2 AI (0.0-0.9); SJOGREN'S Anti-SS-B test < 0.2 AI (0.0-0.9)
[2025-01-16 15:08] LABS: Angiotensin Convert Enzyme 94 U/L (14-82); Anti-Smooth Muscle ABS 4 Units (0-19); CCP IgG Antibodies 5 units (0-19); Carcinoembryonic Antigen 1.3 ng/mL (0.0-4.7); Cytoplasmic Ab (C-ANCA) <1:20 titer (Neg:<1:20); Perinuclear Ab (P-ANCA) <1:20 titer (Neg:<1:20)
== END | disposition home or self-care (01) ==
PROVIDERS: PCP Nurse Practitioner Family; Referring Provider Internal Medicine Pulmonary Disease; Visit Provider Internal Medicine Pulmonary Disease
DX: R06.00 Dyspnea, unspecified (principal)
CPT/HCPCS: 36415; 76000; 82164; 82378; 83516; 85025; 85652; 86037; 86038; 86140; 86200; 86225; 86235; 86762

== ENCOUNTER → 2025-01-29 | Outpatient (CLI) | payer MEDICARE, SELFPAY ==
--- NOTE | 2025-01-29 08:10 | CT_ITS ---
EXAM: CT Chest Without Intravenous Contrast CLINICAL INDICATION: DYSPNEA TECHNIQUE: Axial computed tomography images of the chest without intravenous contrast. This CT exam was performed using one or more of the following dose reduction techniques: automated exposure control, adjustment of the mA and/or kV according to patient size, and/or use of iterative reconstruction technique. COMPARISON: CT Chest dated 10/02/2024 FINDINGS: LUNGS AND PLEURAL SPACES: Partial consolidation and ground-glass attenuation of the right lower lobe could be atelectasis and/or pneumonia, without significant change from the prior exam. Lung emphysema. Right apical scarring. Stable 3 mm and 4 mm nodule of the right upper lobe. No significant effusion. HEART: Unremarkable. No cardiomegaly. No significant pericardial effusion. No significant coronary artery calcifications. BONES/JOINTS: Unremarkable. No acute fracture. No dislocation. SOFT TISSUES: Unremarkable. VASCULATURE: Scattered calcified atherosclerotic disease of aorta. No thoracic aortic aneurysm. LYMPH NODES: Unremarkable. No enlarged lymph nodes. CT/Chest without Contrast IMPRESSION: 1. Partial consolidation and ground-glass attenuation of the right lower lobe could be atelectasis and/or pneumonia, without significant change from the prior exam. 2. Stable 3 mm and 4 mm nodule of the right upper lobe. Reading Location[facility]
== END | disposition home or self-care (01) ==
LOC: CT 07:48
PROVIDERS: PCP Nurse Practitioner Family; Referring Provider Internal Medicine Pulmonary Disease; Visit Provider Internal Medicine Pulmonary Disease
DX: R06.00 Dyspnea, unspecified (principal)
CPT/HCPCS: 71250

== ENCOUNTER → 2025-02-05 | Outpatient (CLI) | payer MEDICARE, SELFPAY ==
--- NOTE | 2025-02-05 07:43 | ECHOD_ITS ---
Reason For Study Reason For Study: DYSPNEA Procedure This was a 2D Doppler, Color Flow transthoracic echocardiogram. Exam performed in department. Left Ventricle Normal LV size. The left ventricular ejection fraction is 65 %. Stage 1 diastolic dysfunction. No regional wall motion abnormalities noted. Right Ventricle Normal RV size. Normal systolic function. Atria Normal left atrium. Normal right atrium. Mitral Valve Bileaflet mitral valve prolapse. Mild-Moderate (1-2+) eccentric mitral valve insufficiency. Tricuspid Valve Normal tricuspid valve. Mild (1+) tricuspid valve insufficiency. Pulmonary artery systolic pressure is 42 mmHg. Aortic Valve Trisinus/trileaflet aortic valve. Mild (1+) aortic valve insufficiency. Pulmonic Valve Normal pulmonic valve. Mild-Moderate (1-2+) pulmonic valve insufficiency. Great Vessels Normal aortic root. The pulmonary artery is normal size. Inferior vena cava collapse with sniff. Pericardium/Pleural No pericardial effusion. MMode/2D Measurements & Calculations LVIDd: 4.7 cm IVSd: 1.1 cm Ao root diam: 3.0 cm LVIDs: 3.4 cm LVPWd: 0.81 cm RVDd: 3.3 cm FS: 27.6 % LAV(MOD-bp): 55.6 ml LVAd ap4: 22.7 cm2 SV(MOD-sp4): 37.0 ml LAV(MOD-bp) Indexed: 33.8 ml/m2 LVLd ap4: 7.3 cm SI(MOD-sp4): 22.5 ml/m2 LAV(MOD-sp2): 56.9 ml EDV(MOD-sp4): 59.8 ml LAV(MOD-sp4): 50.8 ml EDV(sp4-el): 60.3 ml LVAs ap4: 11.7 cm2 LVLs ap4: 5.4 cm ESV(MOD-sp4): 22.8 ml ESV(sp4-el): 21.5 ml EF(MOD-sp4): 61.9 % EF(sp4-el): 64.3 % SV(sp4-el): 38.7 ml LA A4 area: 17.2 cm2 LA dimension(2D): 4.0 cm RA A4 area: 14.3 cm2 TAPSE: 2.6 cm Time Measurements MV dec time: 0.17 sec Doppler Measurements & Calculations MV E max ravi: 50.6 cm/sec Lat Peak E' Ravi: 5.6 cm/sec Med Peak E' Ravi: 9.0 cm/sec MV A max ravi: 62.7 cm/sec E/E' lat: 9.0 E/E' med: 5.6 MV E/A: 0.81 MV V2 max: 94.9 cm/sec MV P1/2t max ravi: 67.3 cm/sec Ao V2 max: 140.4 cm/sec MV max P.6 mmHg MV P1/2t: 35.6 msec Ao max P.9 mmHg MV V2 mean: 48.6 cm/sec Ao V2 mean: 97.1 cm/sec MV mean P.1 mmHg MV dec slope: 553.8 cm/sec2 Ao mean P.3 mmHg MV V2 VTI: 22.3 cm MVA(P1/2t): 6.2 cm2 Ao V2 VTI: 32.5 cm AV (velocity ratio): 0.86 AI max ravi: 439.4 cm/sec LV V1 max: 109.8 cm/sec MR max ravi: 493.5 cm/sec AI max P.2 mmHg LV V1 max P.8 mmHg MR max P.4 mmHg LV V1 mean P.8 mmHg MR mean ravi: 335.3 cm/sec AI dec slope: 248.7 cm/sec2 LV V1 mean: 78.2 cm/sec MR mean P.4 mmHg AI P1/2t: 517.5 msec LV V1 VTI: 28.0 cm MR VTI: 85.6 cm PA V2 max: 80.0 cm/sec TR max ravi: 303.9 cm/sec PA V2 mean: 55.7 cm/sec PI dec slope: 286.9 cm/sec2 TR max P.0 mmHg ECHO/Echo Complete Interpretation Summary Normal LV size. Bileaflet mitral valve prolapse. Mild-Moderate (1-2+) eccentric mitral valve insufficiency. The left ventricular ejection fraction is 65 %. Stage 1 diastolic dysfunction. Ordering Physician: Porfirio Abdalla V Referring Physician: Dhara Jiménez Performed By: Jessica Mari, RDCS, RVT
== END | disposition home or self-care (01) ==
PROVIDERS: PCP Nurse Practitioner Family; Referring Provider Internal Medicine Pulmonary Disease; Visit Provider Internal Medicine Pulmonary Disease
DX: R06.00 Dyspnea, unspecified (principal)
CPT/HCPCS: 93306

== ENCOUNTER → 2025-04-14 | Outpatient (CLI) | payer MEDICARE, SELFPAY ==
--- NOTE | 2025-04-14 12:32 | BI_ITS ---
EXAM: SCRN MAMM (CAD)W/STEPAN BILAT DATE: 04/14/2025 CLINICAL HISTORY: F, Age 80 y/o , SCRN MAMM (CAD)W/STEPAN BILAT History of mother with breast cancer. Remote right breast biopsy. BREAST CANCER RISK ASSESSMENT: Not assessed. TECHNIQUE: Bilateral screening digital breast tomosynthesis with 2D and 3D images. Computer aided detection. COMPARISON: Prior exam(s) dated March 15, 2024.. FINDINGS: TISSUE DENSITY: The breast tissue is heterogenously dense, which may obscure small masses. Bilateral Breast Mammographic Findings: No significant masses, calcifications or other abnormalities are identified. No suspicious masses, areas of developing architectural distortion, or suspicious calcifications. There has been no significant interval change. BI/SCRN MAMM (CAD)W/STEPAN BILAT IMPRESSION: OVERALL FINAL ASSESSMENT: BIRADS 1 NEGATIVE RECOMMENDATION: Routine annual follow-up in 1 Year A letter with findings and recommendations will be mailed to the patient. Reading Location: [place] [id number]
== END | disposition home or self-care (01) ==
LOC: OPBI 12:31
PROVIDERS: PCP Nurse Practitioner Family; Referring Provider Nurse Practitioner Family; Visit Provider Nurse Practitioner Family
DX: Z12.31 Encounter for screening mammogram for malignant neoplasm of breast (principal); Z80.3 Family history of malignant neoplasm of breast
CPT/HCPCS: 77063; 77067

== ENCOUNTER → 2025-07-23 | Outpatient (CLI) | payer MEDICARE, SELFPAY ==
[2025-07-23 12:33] LABS: Hematocrit 37.4 % (37-47); Hemoglobin 12.4 g/dL (12.0-15.0); Immature Granulocytes Count 0.020 X10^3/uL (0.0-0.0); Mean Corp Hgb Conc 33.2 g/dL (32-36); Mean Corpuscular Volume 86.4 fL (81-99); Mean Platelet Vol. 11.8 fl (6.2-12.0); NRBC Flagged by Analyzer 0 % (0-5); POSITIVE COUNT YES; POSITIVE DIFFERENTIAL YES; Platelet Count 97 K/mm3 (150-450); RBC Distribution Width CV 17.6 % (11.6-14.6); RBC Distribution Width SD 56.4 fl (35.1-43.9); Red Blood Count 4.33 M/mm3 (4.2-5.4); White Blood Count 3.5 K/mm3 (4.4-11.0)
[2025-07-23 12:48] LABS: Differential Indicated SCAN CRITERIA MET
[2025-07-23 13:07] LABS: Anion Gap 12 (5-15); BUN 18 mg/dL (4-19); BUN/Creat Ratio 24.9 RATIO (10-20); CRP 15.90 mg/L (0.0-3.0); Calcium,Total 9.5 mg/dL (7.6-11.0); Carbon Dioxide 25.3 mmol/L (21.0-32.0); Chloride 102 mmol/L (98-108); Glucose 90 mg/dL (70-99); Potassium 4.5 mmol/L (3.3-5.1)
== END | disposition home or self-care (01) ==
PROVIDERS: PCP Nurse Practitioner Family; Referring Provider Nurse Practitioner Family; Visit Provider Nurse Practitioner Family
DX: R05.9 Cough, unspecified (principal)
CPT/HCPCS: 80048; 85025; 85652; 86140